=== PATIENT | female | born 1945 | race Caucasian/White ===

== ENCOUNTER 2017-01-31 23:51 | Emergency (ER) | payer MEDICARE, OTHER ==
--- NOTE | ~2017-01-31 | CT71 ---
[facility] A Service [facility] RADIOLOGY TEXT RESULTS PATIENT: HAZEL MONREAL LOCATION: [facility] : 46 UNIT #: [id number] AGE: [address]: Manuel Magana MD SEX: F ORDER DR: [id number] [facility] [address] [place], [place] [address] [id number] E MR#: [id number] Acc #: [id number] NAME: HAZEL MONREAL : 1945 SEX: F STUDY DATE/TIME: 01/31/2017 23:20 UNIT: [facility] ROOM: STUDY DESCRIPTION: CT Head Wo Contrast Attending Physician: Manuel Magana M.D. Ordering Physician: Manuel Magana M.D. Primary Care Physician: Luis Lujan M.D. MEDICAL IMAGING REPORT This report is preliminary unless electronic signature is present EXAM CT head without contrast DATE 01/31/2017 at 23:20 HISTORY 71-year-old female fell while trying to stand. Hit forehead on floor tonight. Left forehead bruising and bump. COMPARISON Noncontrast CT head 01/12/2016. FINDINGS This CT exam was performed with one or more of the following radiation dose reduction techniques: Automatic exposure control, adjustment of mA and/or kV according to patient size, and iterative reconstruction. No acute intracranial hemorrhage, mass lesion, mass effect or midline shift is seen. No evidence of acute or evolving infarct. There is mild left frontal scalp soft tissue swelling. Scattered hypodensities are present within the deep white matter of the brain which are nonspecific but are favored to represent changes of chronic microvascular disease. There is mild age-appropriate parenchymal atrophy. No displaced calvarial fracture. Mucous retention cyst or polyp is seen within the right sphenoid sinus. Mild ethmoid sinus mucosal thickening, right greater than left. Mastoid air cells appear clear. IMPRESSION 1. Mild left frontal scalp soft tissue swelling. No acute intracranial findings. 2. Mild generalized atrophy and chronic microvascular disease changes. [facility] A Service of [facility] RADIOLOGY TEXT RESULTS PATIENT: HAZEL MONREAL [id number] [birth year] UNIT #: [id number] AGE: [address]: Manuel Magana MD SEX: F ORDER DR: 3. Mild paranasal sinus disease. Dictated by... Kori Schaefer M.D. THIS IS AN ELECTRONICALLY VERIFIED REPORT Kori Schaefer M.D. at 02/01/2017 9:58 PM [facility]/jonny TD: 02/01/2017 00:32 JOB #: [id number] MEDICAL IMAGING REPORT Page 1 of 1 COPY
[~2017-01-31 23:51] MED LIST: ALBUTEROL17 GM INH; ALPRAZOLAM; ALPRAZOLAM PO; AMBIEN CR; AMBIEN PO; AMITRIPTYLINE H25 MG PO; AMITRYPTYLINE PO; AMLODIPINE-VAL1 EACH PO; BENADRYL PO; BENZONATATE PO; BRINTELLIX10 MG PO; BYSTOLIC10 MG PO; CALCIUM + D; CALCIUM1 TAB.CHEW PO; CALTRATE PLUS T1 TAB PO; CECLOR PO; CELEBREX PO; CIPRO PO; CLEOCIN PO; CLIDINIUM-CDP C1 CAP PO; COUMADIN; COUMADIN PO; COUMADIN1 MG PO; COUMADIN5 MG PO; CRESTOR10 MG PO; CYMBALTA PO; DARVOCET-N 1001 TAB; DIAZEPAM10 MG PO; DILTIAZEM ER60 MG PO; EFFEXOR XR PO; ELIQUIS2.5 MG PO; ELOCON15 GM TOP; EVOXAC30 MG PO; FERROUS SULFATE PO; FLEXERIL PO; FLONASE16 GM; FOLIC ACID1 MG PO; FUROSEMIDE40 MG PO; GABAPENTIN300 M2 PO; HYDROCHLOROTHIA25 MG PO; HYDROCODON-ACE1 EAC1 PO; HYDROCODONE-APA1 T45 PO; HYDROXYZINE HCL25 M1 PO; IBUPROFEN PO; IBUPROFEN800 MG PO; K-DUR20 ME1 PO; KCL; KCL PO; LASIX; LASIX PO; LEVAQUIN750 MG PO; LEVOTHYROXINE25 MC1 PO; LEVOTHYROXINE25 MCG PO; LIBRAX CAPSULE1 CAP PO; LIPITOR; LORACET PO; LORTAB 10-5001 EACH PO; LORTAB 10/500 T1 TAB PO; LORTAB 7.5-5001 TAB PO; LOVENOX SUBQ; MIRTAZAPINE30 M1 PO; NEURONTIN300 MG PO; NORVASC PO; NORVASC10 MG PO; OXYCODON HCL-1 UDTAB PO; PANTOPRAZOLE SO40 MG PO; PAXIL PO; PERCOCET 10/3251 TAB PO; PHENERGAN PO; PHENERGAN PR; PILOCARPINE HCL5 MG PO; PLAQUENIL200 MG; PLAQUENIL200 MG PO; POTASSIUM CHLO10 ME1 PO; PREDNISONE10 MG/DOSE PO; PRILOSEC; PRILOSEC PO; PRILOSEC20 MG PO; PROPRANOLOL HCL20 MG PO; PROTONIX PO; REMERON30 MG PO; ROBAXIN PO; SALAGEN5 MG PO; SIMVASTATIN10 MG PO; SIMVASTATIN20 MG PO; SYMBICORT INH; THERAPEUTIC-M1 EAC2 PO; TOVIAZ4 MG PO; ULTRAM ER100 MG PO; VALIUM10 MG PO; VASOTEC; VASOTEC PO; VISTARIL PO; WARFARIN SODIUM2 MG PO; ZANAFLEX4 M1 PO; ZANTAC PO; ZOCOR PO; ZOCOR20 MG PO; [UNRECOGNIZED DRUG - OTHER]; [UNRECOGNIZED DRUG - OTHER] PO
== END 2017-02-01 01:05 | disposition home or self-care (01) ==
LOC: CED 23:51
DX: S00.83XA Contusion of other part of head, initial encounter (principal); I12.9 Hypertensive chronic kidney disease with stage 1 through stage 4 chronic kidney disease, or unspecified chronic kidney disease; E11.22 Type 2 diabetes mellitus with diabetic chronic kidney disease; N18.9 Chronic kidney disease, unspecified; E78.5 Hyperlipidemia, unspecified; F41.9 Anxiety disorder, unspecified; Z86.718 Personal history of other venous thrombosis and embolism; Z86.711 Personal history of pulmonary embolism; Z79.899 Other long term (current) drug therapy; W01.0XXA Fall on same level from slipping, tripping and stumbling without subsequent striking against object, initial encounter; Y92.009 Unspecified place in unspecified non-institutional (private) residence as the place of occurrence of the external cause
CPT/HCPCS: 70450; 99284

== ENCOUNTER 2017-02-07 11:18 | Inpatient (IN) | payer MEDICARE ==
--- NOTE | ~2017-02-07 | CR71 ---
[facility] A Service of [facility] & [facility] RADIOLOGY TEXT RESULTS PATIENT: HAZEL MONREAL LOCATION: [address] : [birth year] UNIT #: [id number] AGE: [address]: Nathaly Martinez MD SEX: F ORDER DR: [id number] [facility] [address] [place], [place] [address] [id number] I MR#: [id number] Acc #: [id number] NAME: HAZEL MONREAL : 1945 SEX: F STUDY DATE/TIME: 02/14/2017 UNIT: [facility] ROOM: [facility] STUDY DESCRIPTION: CR Chest Single View Attending Physician: Nathaly Martinez M.D. Ordering Physician: Lopez Mendez M.D. Primary Care Physician: Luis Lujan M.D. MEDICAL IMAGING REPORT This report is preliminary unless electronic signature is present EXAM Portable chest 02/14 03:36 INDICATIONS Respiratory failure. Ventilator patient. Pneumonia. Hypotension. FINDINGS AP portable chest is compared 02/11/2017. ET tube and right IJ line are in good position. Dense infiltrates in the right bya-in-qbcfr lung are relatively stable. Worsened infiltrate noted left perihilar lung. There is a small right effusion. No pneumothorax. Dictated by... Edenilson Gupta Jr., M.D. THIS IS AN ELECTRONICALLY VERIFIED REPORT Edenilson Gupta Jr., M.D. at 02/14/2017 5:19 PM VIVIANE/ruy TD: 02/14/2017 10:55 JOB #: [id number] MEDICAL IMAGING REPORT Page 1 of 1 COPY
--- NOTE | ~2017-02-07 | EKG ---
PATIENT: HAZEL MONREAL UNIT #: [id number] Ventricular Rate: 77 BPM Atrial Rate: 77 BPM P-R Interval: 132 ms QRS Duration: 74 ms Q-T Interval: 404 ms QTC Calculation(Bezet): 457 ms P [place]: 51 degrees Calculated R [place]: 38 degrees Calculated T [place]: 20 degrees Diagnosis Line: Normal sinus rhythm Diagnosis Line: Normal ECG Diagnosis Line: When compared with ECG of 12-FEB-2017 09:23, Diagnosis Line: T wave amplitude has increased in Anterolateral Diagnosis Line: leads Diagnosis Line: Confirmed by SADIA HARRY MD ([id number]) on Diagnosis Line: 02/24/2017 1:12:35 PM INTERPRETING MD: ARYAN
--- NOTE | ~2017-02-07 | CR6 ---
[facility] A Service of [facility] & [facility] RADIOLOGY TEXT RESULTS PATIENT: HAZEL MONREAL LOCATION: [place] [address]13 : 46 UNIT #: [id number] AGE: [address]: Nathaly Martinez MD SEX: F ORDER DR: [id number] [facility] [address] [place], [place] [address] [id number] I MR#: [id number] Acc #: [id number] NAME: HAZEL MONREAL : 1945 SEX: F STUDY DATE/TIME: 02/17/2017 14:21 UNIT: [facility] ROOM: [facility] STUDY DESCRIPTION: CR Abdomen Portable Sng View Attending Physician: Nathaly Martinez M.D. Ordering Physician: Rm Arvizu M.D. Primary Care Physician: Luis Lujan M.D. MEDICAL IMAGING REPORT This report is preliminary unless electronic signature is present EXAM Portable abdomen for Dobbhoff tube placement 02/17/2017. HISTORY Dobbhoff tube placed. REPORT Dobbhoff tube tip is in the midportion of the stomach at 14:21 hours on 02/17/2017. Dictated by... Tremaine Valdivia M.D. THIS IS AN ELECTRONICALLY VERIFIED REPORT Tremaine Valdivia M.D. at 02/17/2017 4:29 PM JASON/ TD: 02/17/2017 15:51 JOB #: [id number] MEDICAL IMAGING REPORT Page 1 of 1 COPY
--- NOTE | ~2017-02-07 | CO ---
Unit #: [id number] #: [id number] Patient: HAZEL STRONG [id number] [facility] [address] [place], [place] [address] [id number] I MR#: [id number] NAME: HAZEL STRONG ROOM: [facility] Age: 71 Sex: F Admission Date: 02/07/2017 : 1945 Attending Physician: Nathaly Martinez M.D. Primary Care Physician: Luis Lujan M.D. Consultation Date: 02/28/2017 CONSULTATION REPORT REASON FOR CONSULTATION Followup and increased agitation. HISTORY OF PRESENT ILLNESS Ms. Hazel Strong is a 71-year-old white female, seen in room 13 at CCU[facility]3 at [facility] on 02/28/2017. The patient is currently on Precedex drip as well as Zyprexa and Ativan. The patient is also on propofol. In spite of that, the patient is still having agitation, needing bilateral hand restraints. Case was discussed with Dr. Martinez as well as with the nursing staff and agreed with the plan to consider changing medication. The patient is unable to give any coherent information at this time, sleepy with medication. The patient's vital signs; temperature 98.7, pulse 78, respirations 18, blood pressure 143/72, oxygen saturation 96%. REVIEW OF SYSTEMS A complete review of systems is unable to test at this time except for agitation. MENTAL STATUS EXAMINATION Vital signs; please see above. General appearance; the patient dressed in hospital attire, breathing through the trach. Speech, unable to assess. Orientation, mood and affect, thought process, thought content; unable to assess. Recent and remote memory, language, fund of knowledge; unable to assess. Insight and judgment, impaired. DIAGNOSIS Psychiatric: Delirium, F05. ASSESSMENT AND PLAN Recommending at this time to discontinue Zyprexa and start the patient on Haldol 5 mg p.o. t.i.d., Cogentin 1 mg p.o. t.i.d. to control agitation and for the above-mentioned symptom. We are replacing Zyprexa with Haldol and increasing Ativan to 1 mg t.i.d. p.o. The patient has an NG-tube with a plan to taper off Precedex as well as propofol, so that the patient is more awake and alert and decrease her agitation. The patient may be going to [place] at this time. We will continue to follow. Please feel free to call if any questions, telephone #[phone]. Dictated by... Figueroa Shannon M.D. [facility] Unit #: [id number] #: [id number] Patient: HAZEL STRONG TD: 03/01/2017 13:50 JOB #: [id number] CONSULTATION REPORT Page 1 of 1 X Figueroa Shannon MD X CONSULTATION REPORT
--- NOTE | ~2017-02-07 | CR72 ---
[facility] A Service of [facility] & [facility] RADIOLOGY TEXT RESULTS PATIENT: HAZEL MONREAL LOCATION: [address] : [birth year] UNIT #: [id number] AGE: [address]: Nathaly Martinez MD SEX: F ORDER DR: [id number] [facility] [address] [place], [place] [address] [id number] I MR#: [id number] Acc #: [id number] NAME: HAZEL MONREAL : 1945 SEX: F STUDY DATE/TIME: 02/15/2017 UNIT: [facility] ROOM: [facility] STUDY DESCRIPTION: CR Chest Single View Portable Attending Physician: Nathaly Martinez M.D. Ordering Physician: Venkat Dash M.D. Primary Care Physician: Luis Lujan M.D. MEDICAL IMAGING REPORT This report is preliminary unless electronic signature is present EXAM Portable chest 02/15 at 05:26 INDICATIONS Respiratory failure. Ventilator patient. Pneumonia. FINDINGS AP portable chest is compared with 02/14/2017. The ET tube and right IJ line are in good position. Feeding tube is in the proximal stomach. Consolidations throughout the right lung with a basilar predominance are again seen. They are probably not significantly changed. There is a small persistent right pleural effusion. Left lung is essentially clear. No pneumothorax. Dictated by... Edenilson Gupta Jr., M.D. THIS IS AN ELECTRONICALLY VERIFIED REPORT Edenilson Gupta Jr., M.D. at 02/16/2017 5:53 AM VIVIANE/ruy TD: 02/15/2017 08:04 JOB #: [id number] MEDICAL IMAGING REPORT Page 1 of 1 COPY
--- NOTE | ~2017-02-07 | CR72 ---
[facility] A Service of [facility] RADIOLOGY TEXT RESULTS PATIENT: HAZEL MONREAL LOCATION: [place] [address]13 : 46 UNIT #: [id number] AGE: [address]: Nathaly Martinez MD SEX: F ORDER DR: [id number] [facility] [address] [place], [place] [address] [id number] I MR#: [id number] Acc #: [id number] NAME: HAZEL MONREAL : 1945 SEX: F STUDY DATE/TIME: 03/01/2017 3:28 UNIT: [facility] ROOM: [facility] STUDY DESCRIPTION: CR Chest Single View Portable Attending Physician: Nathaly Martinez M.D. Ordering Physician: Stoney Kurtz M.D. Primary Care Physician: Luis Lujan M.D. MEDICAL IMAGING REPORT This report is preliminary unless electronic signature is present EXAM Portable chest INDICATIONS Respiratory failure. PROCEDURE Frontal view chest. COMPARISON: 02/26/2017 FINDINGS Heart size unchanged. No new dense consolidation or visible pneumothorax. IMPRESSION Stable Dictated by... Luciano Morales M.D. THIS IS AN ELECTRONICALLY VERIFIED REPORT Luciano Morales M.D. at 03/01/2017 9:53 PM EED/ruy TD: 03/01/2017 08:59 JOB #: [id number] MEDICAL IMAGING REPORT Page 1 of 1 COPY
--- NOTE | ~2017-02-07 | EKG ---
PATIENT: HAZEL MONREAL UNIT #: [id number] Ventricular Rate: 109 BPM Atrial Rate: 109 BPM P-R Interval: 134 ms QRS Duration: 72 ms Q-T Interval: 330 ms QTC Calculation(Bezet): 444 ms P [place]: 55 degrees Calculated R [place]: 20 degrees Calculated T [place]: 120 degrees Diagnosis Line: Sinus tachycardia Diagnosis Line: Poor R wave progression questionable lead position Diagnosis Line: or body habitus Diagnosis Line: ST and T wave abnormality, consider lateral ischemia Diagnosis Line: Abnormal ECG Diagnosis Line: When compared with ECG of 08-FEB-2017 09:16, Diagnosis Line: (unconfirmed) Diagnosis Line: T wave inversion now evident in Lateral leads Diagnosis Line: Confirmed by KAMINI PARKS MD ([id number]) on 02/09/2017 Diagnosis Line: 10:01:16 AM INTERPRETING MD: KASEY MENG
--- NOTE | ~2017-02-07 | HP ---
Unit #: [id number] #: [id number] Patient: HAZEL MONREAL [id number] [place] [address] [place], [place] [address] [id number] I MR#: [id number] NAME: HAZEL MONREAL ROOM: [facility] Age: Sex: F Admission Date: 02/07/2017 : 1945 Attending Physician: Nathaly Martinez M.D. Primary Care Physician: Luis Lujan M.D. HISTORY AND PHYSICAL CHIEF COMPLAINT Unresponsiveness. HISTORY OF PRESENTING ILLNESS A 71-year-old female with multiple medical problems was last admitted in [facility] in January 2016, a year ago or so. She was unresponsive and was brought to the ER by her son. I have tried to call patient's son, but could not communicate with him. I have called patient's sister, and she is going to let the son call me. According to her sister, she was sleeping a lot over the weekend, and her son could not wake her up. Maybe she took a lot of pain medication as per her sister, although she does not know that at all. Her son brought her to the ER today, and patient was found to be in acute respiratory distress and hypotensive. Patient has been intubated in the ER and is being admitted to the ICU. Patient is on pressors. This is the only history I have at this time. PAST MEDICAL HISTORY From previous records: 1. Chronic respiratory failure. 2. Obstructive sleep apnea. 3. Deep venous thrombosis and PE. 4. Chronic kidney disease. 5. Hypertension. 6. Hypothyroidism. 7. Chronic pain. 8. Hyperlipidemia. 9. Anxiety and depression. PAST SURGICAL HISTORY 1. Total knee replacement. 2. Appendectomy. 3. Cholecystectomy. SOCIAL HISTORY Patient lives at home with her son. No history of smoking, alcohol, or drug abuse. ALLERGIES Clindamycin, penicillin, sulfa, and erythromycin. MEDICATIONS Home medication reconciliation is being done at this time. Unit #: [id number] #: [id number] Patient: HAZEL MONREAL PHYSICAL EXAMINATION GENERAL: Patient is evaluated in the ER, room 3. Patient is intubated. She is unresponsive. VITAL SIGNS: Blood pressure is 89/57, respiratory rate (1) , temperature is 96.5, and oxygen saturation is 98% at this time. HEENT: Head is normocephalic. NECK: Patient is intubated. CHEST: Decreased air entry bilaterally. Crackles are positive bilaterally. CARDIOVASCULAR: S1 and S2 positive. Patient has regular rhythm. ABDOMEN: Soft. EXTREMITIES: Negative edema. Pulses are palpable. Patient has a Isabell Hugger on because of hypothermia. CENTRAL NERVOUS SYSTEM: Patient is unresponsive. DIAGNOSTIC STUDIES LABORATORY: ABG shows pH of 7.11, PCO2 of 47.9, and PO2 of 269. This is on 100% FIO2 vent. Urinalysis shows 4+ bacteria. Troponin is less than 0.05. WBC 6.5, hemoglobin 11.5, hematocrit 36.2, and platelet count is 191,000. Sodium 136, potassium 5.7, chloride 104, bicarb 14, BUN 61, and creatinine 4.4. Amylase is 128 and magnesium 2. IMAGING: CT scan of the chest was done in the ER that showed extensive diffuse dense airspace change in the right lower lobe. CT scan of the head without contrast was done which showed no acute abnormality. ASSESSMENT Patient is being admitted to the ICU with: 1. Acute hypoxic respiratory failure. 2. Aspiration pneumonia. 3. Sepsis. 4. Urinary tract infection. 5. Hypotension. 6. Acute renal failure, possible acute tubular necrosis. 7. Altered mental status, possible toxic metabolic encephalopathy. 8. History of obstructive sleep apnea. 9. History of diabetes mellitus, diet controlled. 10. History of deep venous thrombosis and pulmonary embolism. PLAN Admit to ICU. Dr. Derrick Kurtz is being consulted. Ventilator management will be done as per his recommendation. IV antibiotics are being started which are Levaquin, tobramycin, and aztreonam. Lovenox 40 mg subcutaneous daily. Urine toxicology screen will be done. Home medications have been reviewed. Panculture has been done. Patient is being placed on sepsis protocol. Pressors are being started. Please refer to progress note for further orders. Patient's son has called back, and extensive history was taken. He was also informed about critical condition. He does verbalize understanding. ADDITIONAL JOB #: [id number] Dictated by Bony Mckeon Unit #: [id number] #: [id number] Patient: HAZEL MONREAL TD: 02/07/2017 17:43 JOB #: [id number] HISTORY AND PHYSICAL Page 1 of 1 X Nathaly Martinez MD HISTORY AND PHYSICAL
--- NOTE | ~2017-02-07 | CO ---
Unit #: [id number] #: [id number] Patient: HAZEL STRONG [id number] [address] [address] [id number] I MR#: [id number] NAME: HAZEL STRONG ROOM: [facility] Age: 71 Sex: F Admission Date: 02/07/2017 : 1945 Attending Physician: Nathaly Martinez M.D. Primary Care Physician: Luis Lujan M.D. Consultation Date: 03/01/2017 CONSULTATION REPORT REASON FOR CONSULTATION Followup. DISCUSSION Ms. Hazel Strong is a 71-year-old white female seen in CCU 3, bed 13 on 03/01/17. Patient diagnosed with acute respiratory failure and intubated. Still needing restraint bilateral arms. Patient started on Haldol. No side effects from medication. Unable to obtain information from patient. Patient, according to the staff, will be going to [facility] in ICU. Staff trying to control patient's agitation, aggression. In spite of all the medications, still requiring restraints. Vital signs: Pulse 72, respirations 23, blood pressure 97/44. REVIEW OF SYSTEMS Complete review of systems unobtainable. MENTAL STATUS EXAMINATION VITAL SIGNS: Please see above. GENERAL APPEARANCE: Patient dressed in hospital attire and currently intubated. ATTENTION SPAN AND CONCENTRATION: Unable to assess. SPEECH, ORIENTATION, MOOD AND AFFECT, THOUGHT PROCESS, THOUGHT CONTENT and RECENT AND REMOTE MEMORY: Unable to assess. LANGUAGE AND FUND OF KNOWLEDGE: Unable to assess. INSIGHT AND JUDGEMENT: Impaired. DIAGNOSES PSYCHIATRIC 1. Delirium, F05. 2. History of major depressive disorder, recurrent, severe, F33.2. ASSESSMENT/PLAN Advised at this time to continue with current regimen of Haldol, Cogentin, and Ativan and continue with the medication advised. Suggest Precedex drip. Continue with restraints for safety at this time. Please feel free to call if any questions. Telephone number . Dictated by... Figueroa Shannon M.D. [facility] Unit #: [id number] #: [id number] Patient: HAZEL STRONG TD: 03/02/2017 09:24 JOB #: [id number] CONSULTATION REPORT Page 1 of 1 X Figueroa Shannon MD CONSULTATION REPORT
--- NOTE | ~2017-02-07 | CR72 ---
[facility] A Service of [facility] & [facility] RADIOLOGY TEXT RESULTS PATIENT: HAZEL MONREAL LOCATION: [address] : [birth year] UNIT #: [id number] AGE: [address]: Nathaly Martinez MD SEX: F ORDER DR: [id number] [facility] [address] [place], [place] [address] [id number] I MR#: [id number] Acc #: [id number] NAME: HAZEL MONREAL : 1945 SEX: F STUDY DATE/TIME: 02/18/2017 04:36 [facility]: [facility] STUDY DESCRIPTION: CR Chest Single View Portable Attending Physician: Nathaly Martinez M.D. Ordering Physician: Laureano Edwards Jr., M.D. Primary Care Physician: Luis Lujan M.D. MEDICAL IMAGING REPORT This report is preliminary unless electronic signature is present EXAM Portable chest 02/18/2017 04:36 INDICATION Respiratory failure. Ventilator patient. FINDINGS AP portable chest is compared with 02/16/2017. The patient has been extubated. Cardiomegaly is stable. There is increased patchy infiltrate in the left ixn-zy-aezlw lung. There is relatively stable fairly diffuse infiltrate in the right lung. There is a small right pleural effusion which is unchanged. No pneumothorax. Right IJ line in the SVC. Dictated by... Edenilson Gupta Jr., M.D. THIS IS AN ELECTRONICALLY VERIFIED REPORT Edenilson Gupta Jr., M.D. at 02/21/2017 8:36 AM VIVIANE/ashely TD: 02/18/2017 06:59 JOB #: [id number] MEDICAL IMAGING REPORT Page 1 of 1 COPY
--- NOTE | ~2017-02-07 | FU ---
[facility] Nutrition Therapy DATE: 02/15/17 Patient: HAZEL MONREAL Physician: FRANCK Address: [facility] [address] Room/Bed: [address], Zip: [place] [address] Admit Date: 02/07/17 Date of : [birth year] Height: 4 11 Weight: 171 78 NUTRITION MONITORING/FOLLOW-UP: Reason: Follow up Anthropometrics: Wt 02/15: 78 kg Labs: K+ 2.8 gluc 117 BUN 47 Ca++ 7.1 Alb 1.9 Accuchecks 128 GFR 8 Meds: Folic acid, NaCl, pepcid, levaquin (IV), sodium bicarbonate I&O's: 4090/3772, last BM 02/15 Skin: Deep tissue injury to left heel Edema: Generalized- pedal/ hands Estimated Nutrition Needs: 7823-8893 kcals (15-18 kcals/kg) 84-109 grams protein (1.0-1.3 grams/kg) Assessment: Chart reviewed, events noted. Pt remains intubated in the ICU. Pt failed wean yesterday per RN report. Pt continues to receive enteral nutrition with Nepro @ 30 mL/hr + Prostat BID. Per pump history, the pt has received 98% goal volume of enteral nutrition x 24 hrs, and 92% of goal volume over 48 hrs. Edema noted. Please see recommendations below. Dx: 1) Inadequate oral intake RT intubation AEB need for enteral nutrition support- ACTIVE 2) Stage II obesity RT possibly poor lifestyle habits AEB BMI 37.2. Intervention: 1. Continue enteral nutrition Monitoring, Evaluation and Goals: 1. Enteral nutrition; provide >80% goal volume x 24 hrs- MET 2. Labs; WNL- NOT MET 3. Weight; preserve lean body mass- IN PROGRESS New goals: 1. Improve labs; glucose, BUN, K+, accuchecks Recommendations: 1. Continue the current enteral nutrition regimen with Nepro @ 30 mL/hr + Prostat BID. [facility] Nutrition Therapy DATE: 02/15/17 Patient: HAZEL MONREAL Physician: FRANCK [facility] [address] Room/Bed: [address], Zip: [place] [address] Admit Date: 02/07/17 Date of : [birth year] Height: 4 11 Weight: 171 78 2. Please obtain a current phos level, as the pt may no longer need to be on a renal enteral formula (low K+ noted, BUN, GFR, creat trending down). If the pt's Phos is WNL, please change enteral formula from Nepro to Jevity 1.5. If ordered: -Start Jevity 1.5 @ goal rate of 35 mL/hr + 30 mL/hr Prostat BID to provide: 1640 kcals/ 91 grams protein/ 730 mL free H20 3. Replete electrolytes to WNL PRN. 4. If the pt is extubated, recommend UTILITY SYSTEM OPERATOR evauation. Status: Pt is at mild-moderate nutritional risk. Respectfully, KUSUM REBOLLAR RD, LD [employer] [facility] cc: client file
--- NOTE | ~2017-02-07 | CR72 ---
[facility] A Service of [facility] & [facility] RADIOLOGY TEXT RESULTS PATIENT: HAZEL MONREAL LOCATION: [place] [address] : [birth year] UNIT #: [id number] AGE: [address]: Nathaly Martinez MD SEX: F ORDER DR: [id number] [facility] [address] [place], [place] [address] [id number] I MR#: [id number] Acc #: [id number] NAME: HAZEL MONREAL : 1945 SEX: F STUDY DATE/TIME: 02/09/2017 4:06 UNIT: [facility] ROOM: [facility] STUDY DESCRIPTION: CR Chest Single View Portable Attending Physician: Nathaly Martinez M.D. Ordering Physician: Stoney Kurtz M.D. Primary Care Physician: Luis Lujan M.D. MEDICAL IMAGING REPORT This report is preliminary unless electronic signature is present EXAM Portable chest HISTORY Respiratory distress COMPARISON 02/08/2017 FINDINGS Examination demonstrates endotracheal tube in place, unchanged as well as the right neck approach central line. No significant change in cardiopulmonary status with continued dense consolidation right upper and right lower lobes, most compatible with acute infectious pneumonia. Left lung remains clear. Heart and mediastinum unremarkable except for atherosclerotic changes. No pneumothorax. Dictated by... Chele Parker M.D. THIS IS AN ELECTRONICALLY VERIFIED REPORT Chele Parker M.D. at 02/09/2017 10:33 PM THERON/caro TD: 02/09/2017 04:49 JOB #: [id number] MEDICAL IMAGING REPORT Page 1 of 1 COPY
--- NOTE | ~2017-02-07 | DS ---
Unit #: [id number] #: [id number] Patient: HAZEL STRONG [id number] [address] [place], [place] [address] [id number] MR#: [id number] NAME: HAZEL STRONG ROOM: [facility] Age: 71 Sex: F Admission Date: 02/07/2017 : 1945 Discharge Date: 03/01/2017 Attending Physician: Nathaly Martinez M.D. Primary Care Physician: Luis Lujan M.D. DISCHARGE SUMMARY CONSULTATION DURING HOSPITALIZATION 1. Dr. Luis Maria from [facility]. 2. Dr. Anu Traore from hematology services 3. Dr. Santos from cardiology services. 4. Dr. Derrick Kurtz from pulmonary services. 5. Dr. Laureano Edwards and Dr. Coreas from renal services. 6. Dr. Figueroa Shannon from psych services. FINAL DIAGNOSES 1. Acute hypoxic respiratory failure. 2. Status post tracheostomy. 3. Status post percutaneous endoscopic gastrostomy tube placement. 4. Congestive heart failure with ejection fraction of 35%. 5. Ruldg-tk-rdzartz kidney disease. 6. Acute non-ST elevation myocardial infarction. 7. History of deep venous thrombosis/pulmonary embolism. 8. History of methicillin-sensitive Staphylococcus aureus pneumonia. Has completed the course of antibiotics. 9. Escherichia coli urinary tract infection. Patient has completed the course of antibiotics. 10. Diabetes mellitus type 2. 11. Hypertension. DISCHARGE MEDICATIONS 1. Ventolin inhaler q.4 h. p.r.n. 2. Mini-neb treatment with albuterol and ipratropium q.i.d. 3. Symbicort 160/4.5 two puff inhaler b.i.d. 4. Prednisone tapering dose. 5. Tylenol 650 q.6 h. p.r.n. 6. Lovenox 80 mg subcu daily. 7. Cogentin 1 mg p.o. t.i.d. 8. Haldol 5 mg p.o. t.i.d. 9. Ativan 1 mg p.o. t.i.d. 10. Coreg 3.125 mg b.i.d. 11. Furosemide 20 mg daily. 12. Lipitor 20 mg q.h.s. 13. Lisinopril 2.5 mg daily. 14. Pepcid 20 mg daily. 15. Aspirin 81 mg daily. 16. Plavix 75 mg daily. 17. Spironolactone 25 mg daily. 18. Folic acid 1 mg p.o. daily. Unit #: [id number] #: [id number] Patient: HAZEL STRONG DIAGNOSTIC STUDIES LABORATORY WORKUP: On discharge BMP shows sodium 139, potassium 3.6, chloride 108, BUN 38, creatinine 1.1, calcium 8.4.; CBC shows WBC 8.5, hemoglobin 9.1, hematocrit 28.3, platelet count of 298. IMAGING: The patient has multiple radiological studies which will be sent in the chart. Most recent chest x-ray was done on 03/01/2017, today, which shows it is stable. Patient has no new dense consolidation or visible pneumothorax. Heart size is unchanged. HOSPITAL COURSE Miss Karen Strong is a 71-year-old female who was admitted to [facility] on February 07, 2017 when she was brought to ER by her son with altered mental status. Patient was found to be in hypoxic respiratory failure. Patient was admitted to intensive care unit with a diagnosis of acute hypoxemic respiratory failure, right-sided pneumonia, acute kidney injury, possible rhabdomyolysis in the setting of chronic kidney disease, urinary tract infection, sepsis, hypertension and altered mental status, possible toxic-metabolic encephalopathy. Patient has had a very lengthy stay during hospitalization. Patient was not able to come off ventilator; discussed with family. Patient had tracheostomy done and is on ventilator support at this time. Patient was seen by Dr. Mendez's group. Patient does have congestive heart failure, has ejection fraction of 35%. Patient had acute non Q-wave NH. Patient is on Lovenox at this time. Patient has history of DVT and pulmonary embolism. Continue anticoagulation therapy. Patient was on Eliquis at home for PE. Patient will have conservative medical treatment for coronary artery disease as per Dr. Santos. The patient's congestive heart failure seems to be compensated at this time. She is on furosemide per tube dose. Patient does follow with Dr. Traore, train conductor, as outpatient and patient was seen by him during hospitalization. Patient was seen by Dr. Derrick Kurtz. She had MSSA pneumonia which was treated. She has completed the course of antibiotic. No more antibiotic at this time. The patient's steroid is being tapered off. Patient is being started on prednisone 5 mg t.i.d. for three days then 2.5 mg p.o. daily for three days and then stop. Patient was on Solu-Cortef during hospitalization and that is being discontinued. PHYSICAL EXAMINATION ON DISCHARGE Patient is being seen in ICU bed 3. VITAL SIGNS: Blood pressure is 107/59. Respiratory rate 26. Pulse is 69. Temperature 99.4. Oxygen saturation is 100%. HEENT: Head is normocephalic. CHEST: Has decreased air entry bilaterally. CVS: S1, S2 positive, regular rhythm. ABDOMEN: Soft. No tenderness. EXTREMITIES: No edema. DISCHARGE INSTRUCTIONS 1. Patient is being discharged to [facility] in stable condition. 2. Continue medication as above. 3. Patient will need to be continued to be seen by access specialist. Airflight Attendants Supervisor and psychiatry. 4. Patient is on tube feed, is able to tolerate well, continue same. Unit #: [id number] #: [id number] Patient: HAZEL STRONG Dictated by... Bony Mckeon/sanya TD: 03/01/2017 16:37 JOB #: [id number] DISCHARGE SUMMARY Page 1 of 1 X Nathaly Martinez MD X DISCHARGE SUMMARY
--- NOTE | ~2017-02-07 | CR72 ---
[facility] A Service of [facility] & [facility] RADIOLOGY TEXT RESULTS PATIENT: HAZEL MONREAL LOCATION: [place] [id number] : [birth year] UNIT #: [id number] AGE: [address]: Nathaly Martinez MD SEX: F ORDER DR: [id number] [facility] [address] [place], [place] [address] [id number] I MR#: [id number] Acc #: [id number] NAME: HAZEL MONREAL : 1945 SEX: F STUDY DATE/TIME: 02/23/2017 13:23 UNIT: [facility] ROOM: [facility] STUDY DESCRIPTION: CR Chest Single View Portable Attending Physician: Nathaly Martinez M.D. Ordering Physician: Luis Maria M.D. Primary Care Physician: Luis Lujan M.D. MEDICAL IMAGING REPORT This report is preliminary unless electronic signature is present EXAM Portable chest 02/23 INDICATIONS Shortness of air. Tracheostomy tube placement today. FINDINGS AP portable chest compared with 02/22/2017. New tracheostomy tube is in good position. Right IJ line in the SVC. Cardiomegaly is stable. Bilateral infiltrates right greater than left also not significantly changed. There is no pneumothorax. Gastrostomy tube has been placed, and the feeding tube has been removed. Dictated by... Edenilson Gupta Jr., M.D. THIS IS AN ELECTRONICALLY VERIFIED REPORT Edenilson Gupta Jr., M.D. at 02/23/2017 6:34 PM VIVIANE/ TD: 02/23/2017 16:33 JOB #: [id number] MEDICAL IMAGING REPORT Page 1 of 1 COPY
--- NOTE | ~2017-02-07 | CR72 ---
[facility] A Service of [facility] & [facility] RADIOLOGY TEXT RESULTS PATIENT: HAZEL MONREAL [facility] [birth year] UNIT #: [id number] AGE: [address]: Nathaly Martinez MD SEX: F ORDER DR: [id number] [facility] [address] [place], [place] [address] [id number] MR#: [id number] Acc #: [id number] NAME: HAZEL MONREAL : 1945 SEX: F STUDY DATE/TIME: 02/07/2017 12:29 UNIT: [facility] ROOM: STUDY DESCRIPTION: CR Chest Single View Portable Attending Physician: Jordi Quintero M.D. Ordering Physician: Jordi Quintero M.D. Primary Care Physician: Luis Lujan M.D. MEDICAL IMAGING REPORT This report is preliminary unless electronic signature is present EXAM Portable chest x-ray, 02/07/2017 HISTORY Intubation. Central line placement. Short of air. Milky colored urine. Symptoms began this a.m. COMPARISON 01/13/2016 FINDINGS Findings discussed with Dr. Quintero immediately prior to this dictation. Dr. Quintero indicates endotracheal tube has been repositioned subsequent to this radiograph. On current study endotracheal tube tip just within the orifice of left mainstem bronchus. For placement in mid thoracic trachea, it could be withdrawn 2.0-3.0 cm. Right internal jugular central venous catheter terminates in superior vena cava. Stable mild cardiac enlargement and descending thoracic aortic tortuosity. The lungs are moderately well inflated. The left lung is clear. Dense somewhat rounded air space disease in the right mid and lower lung zones. The appearance is nonspecific. Dense aspiration pneumonia could be considered. Other forms of severe pneumonia are possible. Given the rounded configuration, the possibility of neoplastic disease is not excluded. Patient is scheduled for CT chest. Please see that study for further characterization. No pleural effusion or pneumothorax. There is mild gaseous distension of proximal stomach. Dictated by... Luis Carey M.D. THIS IS AN ELECTRONICALLY VERIFIED REPORT Luis Carey M.D. at 02/08/2017 3:50 PM [facility] A Service of [facility] RADIOLOGY TEXT RESULTS PATIENT: HAZEL MONREAL LOCATION: [facility] CICCU3-13 : [birth year] UNIT #: [id number] AGE: [address]: Nathaly Martinez MD SEX: F ORDER DR: STEPHY/fiordaliza TD: 02/07/2017 14:26 JOB #: [id number] MEDICAL IMAGING REPORT Page 1 of 1 COPY
--- NOTE | ~2017-02-07 | OR ---
Unit #: [id number] #: [id number] Patient: HAZEL MONREAL [id number] [address] [place], [place] [address] [id number] MR#: [id number] NAME: HAZEL MONREAL ROOM: [facility] Date of Procedure: 02/23/2017 Admission Date: 02/07/2017 Surgeon: Luis Maria M.D. : 1945 Attending Physician: Nathaly Martinez M.D. Primary Care Physician: Luis Lujan M.D. OPERATIVE REPORT PREOPERATIVE DIAGNOSES 1. Inability to tolerate oral intake. 2. Ventilator dependence. POSTOPERATIVE DIAGNOSES 1. Inability to tolerate oral intake. 2. Ventilator dependence. PROCEDURES PERFORMED 1. Esophagogastroduodenoscopy. 2. Percutaneous endoscopic gastrostomy tube placement. 3. Tracheostomy. EMERGING TECHNOLOGIES DIRECTOR Grayson Stevenson M.D. ANESTHESIA General endotracheal anesthesia. ESTIMATED BLOOD LOSS Minimal. IV FLUIDS 500 crystalloid. COMPLICATIONS None. INDICATIONS FOR PROCEDURE The patient is a 71-year-old, who presents for trach and PEG placement. DESCRIPTION OF PROCEDURE The patient was taken to the operating theater and placed in supine position. General anesthesia was induced. EGD scope was passed under direct vision into the esophagus. Esophagus, stomach, and duodenum appeared relatively normal. I palpated externally. I was able to transilluminate the light through the abdominal wall. This was then prepped. A small incision was made. A needle introducer placed transcutaneous into the stomach under direct vision. I then threaded a guidewire and brought this out orally. I threaded the tube over the guidewire and brought this out through the stomach. This was then fashioned with buttressed skin level. Hemostasis was adequate. Unit #: [id number] #: [id number] Patient: HAZEL MONREAL The patient was then repositioned. Anterior cervical region was prepped and draped. A vertical incision was then made in the skin, taken down through platysma with Bovie electrocautery. I went down through the strap muscles and then divided the thyroid isthmus. I identified the trachea. I then placed two lateral retraction sutures around the second ring. This was then incised and an #8 Shiley tracheostomy tube placed in position. Its location confirmed with return of end-tidal CO2. I then secured with Ethibond sutures and trach tape. The patient tolerated the procedure well and sent to the recovery room in good condition. Dictated by... Bony Boo/bonilla TD: 02/23/2017 23:29 JOB #: [id number] OPERATIVE REPORT Page 1 of 1 X Luis Maria MD X PROCEDURE OPERATIVE NOTE
--- NOTE | ~2017-02-07 | US84 ---
[id number] [facility]. [facility] [address] [place], [place] [address] [id number] I MR#: [id number] Acc #: [id number] NAME: HAZEL MONREAL : 1945 SEX: F STUDY DATE/TIME: 02/16/2017 17:37 UNIT: [facility] ROOM: [facility] STUDY DESCRIPTION: US LE Veins Complete Napoleon Stdy Attending Physician: Nathaly Martinez M.D. Ordering Physician: Venkat Dash M.D. Primary Care Physician: Luis Lujan M.D. MEDICAL IMAGING REPORT This report is preliminary unless electronic signature is present EXAM Color Doppler ultrasound examination of both lower extremities. HISTORY Shortness of breath for the past 1-1/2 weeks. Previous history of pulmonary embolism. TECHNIQUE Venous ultrasound examination of both lower extremities was performed using grayscale, spectral Doppler and color flow Doppler imaging. FINDINGS The examination is negative. There is no evidence of deep venous thrombus from the groin to the lower calf bilaterally. Visualized greater saphenous veins are also patent. IMPRESSION Negative examination. No evidence of lower extremity deep venous thrombosis. Dictated by... Edenilson Villavicencio M.D. THIS IS AN ELECTRONICALLY VERIFIED REPORT Edenilson Villavicencio M.D. at 02/18/2017 12:41 PM SILVINO/jose TD: 02/16/2017 18:53 JOB #: [id number] MEDICAL IMAGING REPORT Page 1 of 1 COPY
--- NOTE | ~2017-02-07 | CR72 ---
[facility] A Service of [facility] & [facility] RADIOLOGY TEXT RESULTS PATIENT: HAZEL MONREAL LOCATION: [place] [address]13 : [birth year] UNIT #: [id number] AGE: [address]: Nathaly Martinez MD SEX: F ORDER DR: [id number] [facility] [address] [place], [place] [address] [id number] I MR#: [id number] Acc #: [id number] NAME: HAZEL MONREAL : 1945 SEX: F STUDY DATE/TIME: 02/18/2017 8:22 UNIT: [facility] ROOM: [facility] STUDY DESCRIPTION: CR Chest Single View Portable Attending Physician: Nathaly Martinez M.D. Ordering Physician: Venkat Dash M.D. Primary Care Physician: Luis Lujan M.D. MEDICAL IMAGING REPORT This report is preliminary unless electronic signature is present EXAM Portable chest INDICATION Endotracheal intubation. Comparison with earlier today. FINDINGS The endotracheal tube is in satisfactory position above the ana. Worsening consolidations within the right upper lobe. Improved aeration of the left base. Stable right lower lobe consolidation. Heart size stable. Stable right IJ central venous catheter. IMPRESSION 1. The endotracheal tube tip is in satisfactory position above the ana. 2. Worsening right upper lobe consolidations. Dictated by... Quinn Parker M.D. THIS IS AN ELECTRONICALLY VERIFIED REPORT Quinn Parker M.D. at 02/21/2017 7:36 AM Adeline TD: 02/18/2017 09:20 JOB #: [id number] MEDICAL IMAGING REPORT Page 1 of 1 COPY
--- NOTE | ~2017-02-07 | CO ---
Unit #: [id number] #: [id number] Patient: HAZEL MONREAL [id number] [address] [address] [id number] I MR#: [id number] NAME: HAZEL MONREAL ROOM: [facility] Age: 71 Sex: F Admission Date: 02/07/2017 : 1945 Attending Physician: Nathaly Martinez M.D. Primary Care Physician: Luis Lujan M.D. CONSULTATION REPORT CHIEF COMPLAINT MGS, but workup normal, PE, history of anterior abdominal bleed, low-dose Lovenox, lost to followup, now sepsis, respiratory failure. HISTORY OF PRESENT ILLNESS This is a 71-year-old female who in the past presented to the hospital with shortness of breath. VC scan in 04/2015 showed PE and she was started on Coumadin, Lovenox and sent home. She came back with bleeding of the anterior abdominal wall. Her INR was elevated. It was reversed and she was started on low-dose Lovenox. She has been taking Eliquis 2.5 mg p.o. daily as an outpatient and tolerating it. The patient in the past had MGS. 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 The patient had (1) fixation that is normal. The patient was lost to followup. Now she is admitted with urosepsis and pneumonia, mostly on the right side. She is receiving multiple antibiotics. She is intubated. Her pressure is low. PAST MEDICAL HISTORY 1. Diabetes. 2. Hypertension. 3. Chronic kidney disease. 4. PE, bleeding, not compliant with anticoagulation. PAST SURGICAL HISTORY 1. Appendectomy. 2. Knee replacement. SOCIAL HISTORY No smoking. No alcohol. No drugs. Used to work for [employer]. FAMILY HISTORY Father had cancer, type unknown. ALLERGIES Sulfa, penicillin, clindamycin and azithromycin. CURRENT MEDICATIONS 1. Levaquin. 2. Folic acid. 3. Aspirin. 4. Lovenox. 5. Azactam. 6. Vancomycin. Unit #: [id number] #: [id number] Patient: HAZEL MONREAL REVIEW OF SYSTEMS Unable to obtain because the patient is sedated and intubated. PHYSICAL EXAMINATION VITALS: Temperature 99.0, pulse 107, respiratory rate 20, blood pressure 130/67, O2 saturations while intubated 99%. HEENT: Dry mucosa. LUNGS: Bilateral wheezes. HEART: S1 and S2. ABDOMEN: Soft. EXTREMITIES: No edema. NEUROLOGIC: Unable to perform. DIAGNOSTIC STUDIES IMAGING: The patient had a CT of the chest without contrast on 02/07/2017. Diffuse dense airspace changes, air bronchogram in the right lower lobe. Resembled focal pneumonia. LABORATORY: Blood culture positive for e-coli. Creatinine 2.0, (2) 4%, B12 475, White blood cell count 18.0, hemoglobin 8.1, MCV 19, platelets 125. ASSESSMENT This is a 71-year-old female who has multiple active issues at present. 1. Sepsis. She has a pneumonia. She has bacteremia. She has a urosepsis. She is intubated. She is receiving multiple antibiotics. 2. Cardiovascular. Troponin is elevated. She is taking aspirin, Lovenox and tolerating. 3. PE. Patient in the past has a history of PE. She had anterior abdominal bleed. She was taking a low-dose Eliquis, but lost to followup. 4. MGS in the past. The patient has a history of some free light chain. Repeat work was normal. 5. Anemia. I will give her intravenous iron, folic acid and Procrit. Her creatinine is elevated. 6. Thrombocytopenia. Will observe. Dictated by... Bony Rodriguez TD: 02/10/2017 09:22 JOB #: [id number] CONSULTATION REPORT Page 1 of 1 X Anu Traore MD CONSULTATION REPORT
--- NOTE | ~2017-02-07 | CR72 ---
[facility] A Service of [facility] & [facility] RADIOLOGY TEXT RESULTS PATIENT: HAZEL MONREAL LOCATION: [place] [address] : [birth year] UNIT #: [id number] AGE: [address]: Nathaly Martinez MD SEX: F ORDER DR: [id number] [facility] [address] [place], [place] [address] [id number] I MR#: [id number] Acc #: [id number] NAME: HAZEL MONREAL : 1945 SEX: F STUDY DATE/TIME: 02/20/2017 18:42 UNIT: [facility] ROOM: [facility] STUDY DESCRIPTION: CR Chest Single View Portable Attending Physician: Nathaly Martinez M.D. Ordering Physician: Venkat Dash M.D. Primary Care Physician: Luis Lujan M.D. MEDICAL IMAGING REPORT This report is preliminary unless electronic signature is present EXAM Portable chest HISTORY Respiratory failure for 2 weeks. FINDINGS ETT tip is 5 cm above the ana. Right IJ central line tip is at the junction of the SVC and right atrium. Mild right perihilar atelectasis or infiltrate, similar to earlier today. Persistent small right pleural effusion and mild atelectasis or infiltrate in the right base. Feeding tube extends into the stomach. Left lung is clear. IMPRESSION Stable chest compared to earlier today. Persistent mild infiltrate or atelectasis in the right mid lung and right base and minimal right pleural effusion. No new infiltrates. Dictated by... Felice Gordillo M.D. THIS IS AN ELECTRONICALLY VERIFIED REPORT Felice Gordillo M.D. at 02/20/2017 10:26 PM DFL/psc TD: 02/20/2017 22:12 JOB #: [id number] MEDICAL IMAGING REPORT Page 1 of 1 COPY
--- NOTE | ~2017-02-07 | FU ---
[facility] Nutrition Therapy DATE: 02/10/17 Patient: HAZEL MONREAL Physician: FRANCK Address: [address] [place] [address] Room/Bed: [address], Zip: [place] [address] Admit Date: 02/07/17 Date of : [birth year] Height: 4 11 Weight: 177 80.5 NUTRITION MONITORING/FOLLOW-UP: Reason: Enteral nutrition follow-up Anthropometrics: Ht: 4'11" Adm wt: 83.6 kg (184#) BMI: 37.2 Current wt: 80.5 kg (177#) Labs: Cl- 113, Gluc 120, BUN 53, Creat 2.0, Ca++ 6.9, Alb 1.9, AST 56, POC 119, GFR 24.7 Meds: Folic acid, NaCl, Pepcid, D5% I&O's: 4829/1421, last BM 02/10 x 3 Skin: No changes, no edema noted Estimated Nutrition Needs: 1601-0422 kcal (15-18 kcal/kg) 84-109 g protein (1.0-1.3 g/kg) Assessment: Chart reviewed, events noted. Pt remains intubated in ICU. Per RN, pt is receiving sedation PRN. DHT was placed and pt is receiving enteral nutrition support with Nepro @ 30 mL/hr + 30 mL prostat BID. Per pump history, pt received 108% of goal volume. Nutrition dx remains, see new evidence and recommendations below. Dx: Inadequate oral intake RT intubation AEB need for enteral nutrition support. -ACTIVE Intervention: 1. Continue current enteral nutrition regimen Monitoring, Evaluation and Goals: 1. Enteral nutrition; provide >80% of estimated needs and goal volume x 24 hrs -MET 2. Labs; WNL -IN PROGRESS 3. Weight; preserve lean body mass -IN PROGRESS Recommendations: 1. Continue enteral nutrition support with Nepro @ 30 mL/hr + 30 mL prostat BID. This provides: 1496 kcal/ 88 g protein/ 525 mL free H2O. 2. Obtain updated phos d/t kidney failure. 3. If extubated, recommend CAR TESTER evaluation. Advance diet as tolerated to consistent carb + healthy heart diet per CAR TESTER eval. [facility] Nutrition Therapy DATE: 02/10/17 Patient: HAZEL MONREAL Physician: FRANCK Address: [address] [place] [address] Room/Bed: [address], Zip: [place] [address] Admit Date: 02/07/17 Date of : [birth year] Height: 4 11 Weight: 177 80.5 Status: Pt is at a moderate nutritional risk. RD will f/u per protocol. Respectfully, Bev Davies, Endoscopy Technican Amada Jorge RD, LD Food and Nutritional Services [facility] cc: client file
--- NOTE | ~2017-02-07 | CR72 ---
[facility] A Service of [facility] & [facility] RADIOLOGY TEXT RESULTS PATIENT: HAZEL MONREAL LOCATION: [place] [address] : [birth year] UNIT #: [id number] AGE: [address]: Nathaly Martinez MD SEX: F ORDER DR: [id number] [facility] [address] [place], [place] [address] [id number] I MR#: [id number] Acc #: [id number] NAME: HAZEL MONREAL : 1945 SEX: F STUDY DATE/TIME: 02/26/2017 2:27 UNIT: [facility] ROOM: [facility] STUDY DESCRIPTION: CR Chest Single View Portable Attending Physician: Nathaly Martinez M.D. Ordering Physician: Stoney Kurtz M.D. Primary Care Physician: Luis Lujan M.D. MEDICAL IMAGING REPORT This report is preliminary unless electronic signature is present EXAM Portable chest INDICATION Shortness of air today. PROCEDURE Frontal view chest. COMPARISON 02/24/2017 FINDINGS Heart size unchanged. Tracheostomy tube stable. No new dense opacity. No visible pneumothorax. IMPRESSION Stable. Dictated by... Luciano Morales M.D. THIS IS AN ELECTRONICALLY VERIFIED REPORT Luciano Morales M.D. at 02/26/2017 9:57 PM BRYON/edward TD: 02/26/2017 09:59 JOB #: [id number] MEDICAL IMAGING REPORT Page 1 of 1 COPY
--- NOTE | ~2017-02-07 | FU ---
[facility] Nutrition Therapy DATE: 02/22/17 Patient: HAZEL MONREAL Physician: FRANCK Address: [address] [facility] Room/Bed: [address], Zip: [place] [address] Admit Date: 02/07/17 Date of : [birth year] Height: 4 11 Weight: 167 76 NUTRITION MONITORING/FOLLOW-UP: Reason: Enteral nutrition follow-up Admitting Dx: 71 y/o female admitted with PNA, UTI, AMS, sepsis, SOB, acute kidney failure Anthropometrics: Ht: 59", admission wt: 83.6 kg, current wt: 76 kg, BMI: 35 (based on average of weights since admission; Stage II obese), wt ranges since admission: 76-80.5 kg Labs: K+ 3.4, BUN 37, GFR 45.8, Na/Mg/glucose WNL, Phos WNL on 02/21 Meds: IV Levaquin, Pepcid, Solu-cortef, Furosemide, Propofol @ 8.2 ml/hr (providing 217 lipid kcals) I&O's: 2247/3364, last BM 02/21, RN notes multiple BM's but C. diff negative Skin: Suspected DTI L heel, redness tayla area, trace edema hands Estimated Nutrition Needs: 4867-0799 kcals per day (based on 17-22 kcals/average weight since admission 78.3 kg) 86-102 g protein per day (based on 1.1-1.3 g/average weight since admission 78.3 kg) Fluids consistent with kcal needs or per MD Assessment: Chart reviewed, events noted. Patient was reintubated on 02/18 and put on versed/fentanyl. Previously on EN with Nepro however this was changed to Jevity due to resolved acute renal failure. She has been tolerating Jevity 1.5 @ goal rate of 35 ml/hr + Prostat BID via DHT, received 88% goal volume past 24 hours per pump history. She is now receiving Propofol @ 8.2 ml/hr, providing an additional 217 lipid kcals for a total of 1857 kcals, 91 g protein and 730 ml water. This meets her protein needs but exceeds her kcal needs. Today during rounds patient was noted not to be a good wean candidate, vent day #16, january consider trach. Sepsis now resolved and renal function improved, glucose well controlled. She is on K/Mg protocol. Noted to have 200 ml GRV on 02/18 but have been minimal since that time. Noted to have multiple stools since admission but C. diff is negative. Average weight since admission is 78.3 kg, see re-estimated nutritional needs above based on this weight. Nutrition goals, dx and recs are stated below. Will continue to follow. Dx: 1) Inadequate oral intake r/t recent extubation AEB continued need for EN - NO LONGER RELEVANT 2) Stage II obese r/t possible poor dietary/lifestyle habits AEB BMI 35 - ACTIVE New nutrition dx: [facility] Nutrition Therapy DATE: 02/22/17 Patient: HAZEL MONREAL Physician: FRANCK Address: [address] [place] [address] Room/Bed: [address], Zip: [place] [address] Admit Date: 02/07/17 Date of : [birth year] Height: 4 11 Weight: 167 76 Inadequate oral intake r/t failed weans, continued intubation AEB need for nutrition support. Intervention: See recs below Monitoring, Evaluation and Goals: 1. EN to provide > 80% goal volume x 24 hours - MET 2. Tolerate diet advancement once appropriate - NOT MET, NO LONGER RELEVANT 3. Labs WNL - IN PROGRESS (K+ low) 4. Once appropriate; gradual weight loss towards a healthy BMI range - NOT APPROPRIATE Monitor: Per protocol, criteria to determine if above goals met Recommendations: 1. Continue replacing lytes prn, patient on K/Mg protocol. 2. If patient is to remain on Propofol (current rate 8.2 ml/hr providing an additional 217 lipid kcals) decrease Jevity 1.5 to 30 ml/hr and continue to give 30 ml Prostat BID per DHT to meet protein needs. If Propofol is to be D/C continue current enteral nutrition regimen: Jevity 1.5 @ 35 ml/hr + 30 ml Prostat BID, which meets her estimated nutrition needs. Consider placing a PEG tube for long-term nutrition support. 3. Wound care prn noting suspected DTI to left heel. Status: Mild-moderate nutrition risk Respectfully, Amada Jorge, RD, LD [facility] cc: client file
--- NOTE | ~2017-02-07 | CR72 ---
[facility] A Service of [facility] & [facility] RADIOLOGY TEXT RESULTS PATIENT: HAZEL MONREAL LOCATION: [address] : [birth year] UNIT #: [id number] AGE: [address]: Nathaly Martinez MD SEX: F ORDER DR: [id number] [facility] [address] [place], [place] [address] [id number] I MR#: [id number] Acc #: [id number] NAME: HAZEL MONREAL : 1945 SEX: F STUDY DATE/TIME: 02/10/2017 5:52 UNIT: [facility] ROOM: [facility] STUDY DESCRIPTION: CR Chest Single View Portable Attending Physician: Nathaly Martinez M.D. Ordering Physician: Lee Wilson M.D. Primary Care Physician: Luis Lujan M.D. MEDICAL IMAGING REPORT This report is preliminary unless electronic signature is present EXAM Portable chest INDICATION Follow up endotracheal tube and infiltrates. FINDINGS Today's portable view of the chest shows the endotracheal tube and central venous catheter remain in good position. The Dobbhoff tube has its tip below the stomach. The heart size is normal. The left lung is clear. There are dense infiltrates in the right mid lung and right lower lobe which are stable. Dictated by... Jarod Fontaine M.D. THIS IS AN ELECTRONICALLY VERIFIED REPORT Jarod Fontaine M.D. at 02/10/2017 4:54 PM AZRA/ashely TD: 02/10/2017 08:24 JOB #: [id number] MEDICAL IMAGING REPORT Page 1 of 1 COPY
--- NOTE | ~2017-02-07 | CR72 ---
[facility] A Service of [facility] RADIOLOGY TEXT RESULTS PATIENT: HAZEL MONREAL LOCATION: [place] [id number] : [birth year] UNIT #: [id number] AGE: [address]: Nathaly Martinez MD SEX: F ORDER DR: [id number] [facility] [address] [place], [place] [address] [id number] I MR#: [id number] Acc #: [id number] NAME: HAZEL MONREAL : 1945 SEX: F STUDY DATE/TIME: 02/22/2017 4:10 UNIT: [facility] ROOM: [facility] STUDY DESCRIPTION: CR Chest Single View Portable Attending Physician: Nathaly Martinez M.D. Ordering Physician: Nathaly Martinez M.D. Primary Care Physician: Luis Lujan M.D. MEDICAL IMAGING REPORT This report is preliminary unless electronic signature is present EXAM Single view chest INDICATIONS Respiratory failure. FINDINGS Single portable AP view of chest compared with 02/20/2017. Heart and mediastinal contours are unchanged. Support lines and tubes remain in place. There is slightly improved aeration in the right lower lobe. Diffuse right pulmonary opacities are otherwise unchanged. IMPRESSION Slight improvement in aeration in the right lower lobe. Dictated by... Dionisio Harris M.D. THIS IS AN ELECTRONICALLY VERIFIED REPORT Dionisio Harris M.D. at 02/24/2017 12:23 AM MARKY/ruy TD: 02/22/2017 07:20 JOB #: [id number] MEDICAL IMAGING REPORT Page 1 of 1 COPY
--- NOTE | ~2017-02-07 | CO ---
Unit #: [id number] #: [id number] Patient: HAZEL MONREAL [id number] [facility] [address] [place], [place] [address] [id number] I MR#: [id number] NAME: HAZEL MONREAL ROOM: [facility] Age: 71 Sex: F Admission Date: 02/07/2017 : 1945 Attending Physician: Nathaly Martinez M.D. Primary Care Physician: Luis Lujan M.D. Consultation Date: 02/24/2017 CONSULTATION REPORT REASON FOR CONSULTATION Anxiety, agitation, confusion. HISTORY OF PRESENT ILLNESS Ms. Ordaz is a 71-year-old white female, seen in room 13, CCU 3 on 02/24/[address] [facility]. The patient was extubated this morning and a tracheostomy was placed. The patient is breathing through ventilation through tracheostomy, needing restraint bilateral arms due to agitation, confusion, also severe anxiety. The patient's vital signs; temperature 98.9, pulse 85, respirations 22, blood pressure 117/60, oxygen saturation 98%. The patient was unable to give any coherent history, but admitted having problem with the anxiety. Chart reviewed. Obtained information from nursing staff. PAST PSYCHIATRIC HISTORY Remarkable for history of depression and anxiety, received outpatient services. No history of any suicide attempt. MEDICAL HISTORY Remarkable for history of chronic respiratory failure, obstructive sleep apnea, deep venous thrombosis, chronic kidney disease, hypertension, hypothyroidism, chronic pain, hyperlipidemia. The patient was admitted in unresponsive state. MEDICATION HISTORY The patient is on spironolactone, Lovenox, Lipitor, Coreg, propofol, KCl. FAMILY HISTORY AND SOCIAL HISTORY The patient has a good support system. No history of abuse. No history of any substance abuse. REVIEW OF SYSTEMS Complete review of systems is unremarkable except as mentioned above, agitation, requiring restraint. MENTAL STATUS EXAMINATION Vital signs; temperature 98.9, pulse 85, respirations 22, blood pressure 117/60, oxygen saturation 100%. General appearance; the patient dressed in hospital attire. The patient was breathing through trach ventilated and needing bilateral hand restraint due to agitation, confused. Attention span and concentration, poor. Speech, very minimal. Orientation, unable to assess. Mood and affect, flat. Thought process, unable to assess. Thought content, guarded and paranoid. Recent and remote memory, poor. Language, unable to assess. [facility], Unit #: [id number] #: [id number] Patient: HAZEL MONREAL impaired. Insight and judgment, impaired. DIAGNOSES Psychiatric: Delirium, F05; major depressive disorder, recurrent, severe, F33.2; anxiety disorder, not otherwise specified, F40.01. Secondary diagnosis: Deferred. Medical diagnosis: Please refer to H and P. Stressors: Psychosocial stressor. ASSESSMENT/PLAN 1. Supportive psychotherapy and psychoeducation provided to the patient, but the patient unable to comprehend much at this time. 2. Recommending at this time to continue with current treatment in CCU and plan to add Zyprexa 5 mg b.i.d. and Ativan 0.5 mg t.i.d. We will closely follow. If needed, consider further adjustment of medication. Please feel free to call if any questions telephone #[phone]. Dictated by... Bony Cooper/bonilla TD: 02/25/2017 00:01 JOB #: [id number] CONSULTATION REPORT Page 1 of 1 X Figueroa Shannon MD X CONSULTATION REPORT
--- NOTE | ~2017-02-07 | CO ---
Unit #: [id number] #: [id number] Patient: HAZEL STRONG [id number] [facility] [address] [place], [place] [address] [id number] I MR#: [id number] NAME: HAZEL STRONG ROOM: [facility] Age: 71 Sex: F Admission Date: 02/07/2017 : 1945 Attending Physician: Nathaly Martinez M.D. Primary Care Physician: Luis Lujan M.D. Consultation Date: 02/25/2017 CONSULTATION REPORT REASON FOR CONSULTATION Followup. DISCUSSION Ms. Hazel Strong is a 71-year-old white female, seen in CCU 3, bed 13 on 02/25/2017 at [facility]. The patient diagnosed with delirium, major depressive disorder, anxiety disorder, seems to be doing better with current medication. The patient was calm and cooperative. The patient dressed casually in hospital attire, lying in a propped up position. The patient has a trach, did not require any restraints. The patient was more relaxed, calm, but still having problem with confusion, unable to give any reliable information. Breathing through trach, ventilated. No side effects from medication. Complete review of systems is unremarkable except as mentioned above. Vital signs; temperature 99.9, pulse 78, respirations 18, blood pressure 111/58, oxygen saturation 100%. MENTAL STATUS EXAMINATION General appearance; the patient dressed casually in hospital attire. Attention span and concentration, poor. Speech, poor. Orientation, unable to assess. Mood and affect, flat. Thought process and thought content, unable to assess. Recent and remote memory, poor. Language, poor. Fund of knowledge, poor. Insight and judgment, poor. DIAGNOSES Psychiatric: 1. Delirium, F05. 2. Major depressive disorder, recurrent, severe, F33.2. 3. Anxiety disorder, not otherwise specified, F40.01. Secondary diagnosis: Deferred. Medical diagnosis: Please refer to H and P. ASSESSMENT/PLAN Recommending at this time to continue with current combination of medication. If needed, consider further adjustment of medication. We will continue to follow and make further adjustment of medication. Please feel free to call if any questions telephone #[phone]. Dictated by... Bony Cooper/bonilla Unit #: [id number] #: [id number] Patient: HAZEL STRONG TD: 02/26/2017 14:09 JOB #: [id number] CONSULTATION REPORT Page 1 of 1 X Figueroa Shannon MD CONSULTATION REPORT
--- NOTE | ~2017-02-07 | CR72 ---
[facility] A Service of [facility] RADIOLOGY TEXT RESULTS PATIENT: HAZEL MONREAL LOCATION: [place] [id number] : [birth year] UNIT #: [id number] AGE: [address]: Nathaly Martinez MD SEX: F ORDER DR: [id number] [facility] [address] [place], [place] [address] [id number] I MR#: [id number] Acc #: [id number] NAME: HAZEL MONREAL : 1945 SEX: F STUDY DATE/TIME: 02/19/2017 4:59 UNIT: [facility] ROOM: [facility] STUDY DESCRIPTION: CR Chest Single View Portable Attending Physician: Nathaly Martinez M.D. Ordering Physician: Venkat Dash M.D. Primary Care Physician: Luis Lujan M.D. MEDICAL IMAGING REPORT This report is preliminary unless electronic signature is present EXAM Single view chest. INDICATION Respiratory failure. FINDINGS Single portable AP of the chest compared to 02/18/2017 and 02/16/2017. Support lines and tubes remain in place. Heart and mediastinal contours are unchanged. Patchy bilateral airspace opacities are similar to the prior study. No pneumothorax. IMPRESSION No interval change. Dictated by... Dionisio Harris M.D. THIS IS AN ELECTRONICALLY VERIFIED REPORT Dionisio Harris M.D. at 02/19/2017 11:14 PM MARKY/delfina TD: 02/19/2017 08:50 JOB #: [id number] MEDICAL IMAGING REPORT Page 1 of 1 COPY
--- NOTE | ~2017-02-07 | CT57 ---
[facility] A Service of [facility] RADIOLOGY TEXT RESULTS PATIENT: HAZEL MONREAL [facility]ATION[facility] : [birth year] UNIT #: [id number] AGE: [address]: Nathaly Martinez MD SEX: F ORDER DR: [id number] [facility] [address] [place], [place] [address] [id number] E MR#: [id number] Acc #: [id number] NAME: HAZEL MONREAL : 1945 SEX: F STUDY DATE/TIME: 02/07/2017 UNIT: [facility] ROOM: STUDY DESCRIPTION: CT Chest Wo Cont Attending Physician: Jordi Quintero M.D. Ordering Physician: Jordi Quintero M.D. Primary Care Physician: Luis Lujan M.D. MEDICAL IMAGING REPORT This report is preliminary unless electronic signature is present EXAM CT chest without contrast 02/07/2017 12:54 hours HISTORY 71-year-old with new onset of dyspnea and confusion today. Bruising on left side of head. COMPARISON Chest x-ray 02/07/2017, 01/13/2016 TECHNIQUE Helical noncontrasted images were obtained from the thoracic inlet through the adrenal glands. Sagittal and coronal reconstructions were performed. No contrast was administered. Total exam DLP for the head and chest exam today is 2117 mGy-cm. The CT exam was performed with one or more of the following radiation dose reduction techniques: automatic exposure control, adjustment of mA and/or kV according to patient size, and iterative reconstruction. FINDINGS Images through the thoracic inlet demonstrate no thyroid lesion or supraclavicular adenopathy. There is a right IJ catheter with tip terminating in the SVC just above the right atrium. There is an endotracheal tube present with tip terminating above the ana. The aorta, pulmonary arteries, cardiac chambers and pericardium are normal. There is no esophageal lesion. The right lung is abnormal. There is patchy airspace density in the right upper lobe and diffuse airspace density in the right lower lobe with minimal patchy involvement of the right middle lobe. There is no pleural effusion. The left lung is clear with the exception STS. [facility] A Service of [facility] RADIOLOGY TEXT RESULTS PATIENT: HAZEL MONREAL LOCATION: [facility]-13 : [birth year] UNIT #: [id number] AGE: [address]: Nathaly Martinez MD SEX: F ORDER DR: of minimal linear atelectasis or scar in the lingula. Limited views through the upper abdomen are negative. IMPRESSION 1. Diffuse, dense airspace change with air bronchograms in the right lower lobe greater than right upper lobe and right middle lobe most likely representing multifocal pneumonia. 2. Satisfactory position of support equipment. 3. The left lung is clear and there is no pleural effusion or adenopathy. Dictated by... Cheryl Luis M.D. THIS IS AN ELECTRONICALLY VERIFIED REPORT Cheryl Luis M.D. at 02/07/2017 5:27 PM MARTINA/ruy TD: 02/07/2017 14:27 JOB #: [id number] MEDICAL IMAGING REPORT Page 1 of 1 COPY
--- NOTE | ~2017-02-07 | CR72 ---
[facility] A Service of [facility] RADIOLOGY TEXT RESULTS PATIENT: HAZEL MONREAL LOCATION: [address] : [birth year] UNIT #: [id number] AGE: [address]: Nathaly Martinez MD SEX: F ORDER DR: [id number] [facility] [address] [place], [place] [address] [id number] I MR#: [id number] Acc #: [id number] NAME: HAZEL MONREAL : 1945 SEX: F STUDY DATE/TIME: 02/11/2017 5:43 UNIT: [facility] ROOM: [facility] STUDY DESCRIPTION: CR Chest Single View Portable Attending Physician: Nathaly Martinez M.D. Ordering Physician: Stoney Kurtz M.D. Primary Care Physician: Luis Lujan M.D. MEDICAL IMAGING REPORT This report is preliminary unless electronic signature is present EXAM Portable chest 02/11/2017 HISTORY Hypotension, respiratory failure. Follow-up endotracheal tube. COMPARISON 02/10 FINDINGS Portable view of the chest was obtained. The endotracheal tube tip is 3 cm above the ana. The central venous catheter is in good position. Left lung is clear. There is dense right mid lung and right lower lobe infiltrates which are stable. IMPRESSION No change in dense right lung infiltrates. The endotracheal tube is in good position. Dictated by... Jarod Fontaine M.D. THIS IS AN ELECTRONICALLY VERIFIED REPORT Jarod Fontaine M.D. at 02/11/2017 8:15 AM AZRA/mercedes TD: 02/11/2017 07:19 JOB #: [id number] MEDICAL IMAGING REPORT [facility] A Service [facility] RADIOLOGY TEXT RESULTS PATIENT: HAZEL MONREAL LOCATION: [address] : [birth year] UNIT #: [id number] AGE: [address]: Nathaly Martinez MD SEX: F ORDER DR: Page 1 of 1 COPY
--- NOTE | ~2017-02-07 | CO ---
Unit #: [id number] #: [id number] Patient: HAZEL MONREAL [id number] [address] [place], [place] [address] [id number] I MR#: [id number] NAME: HAZEL MONREAL ROOM: [facility] Age: 71 Sex: F Admission Date: 02/07/2017 : 1945 Attending Physician: Nathaly Martinez M.D. Primary Care Physician: Luis Lujan M.D. CONSULTATION REPORT HISTORY OF PRESENT ILLNESS A 71-year-old white female with a history of DVT and pulmonary embolus, previously maintained on Eliquis, who presented with altered mental status and hypoxemic respiratory failure. Chest x-ray revealed a new right lower lobe and middle lobe infiltrate. CT scan confirmed this. On admission, she was required intubation. We were asked to see. Her lab work is significant for creatinine of 4.4, previous creatinine was 1.6 in 01/2016, potassium was 5.7, sodium was 136, CO2 was 14. Lactic acid level was 1.2 and 1.0. Coagulation studies were normal. Cardiac enzymes were negative. White count was 6500, hematocrit was 36.2, platelet count was normal. Urine tox screen positive for benzodiazepines and opiates. Urinalysis; 2+ protein, 3+ leukocyte esterase, positive for red blood cells, 4+ bacteria. PAST MEDICAL HISTORY History of DVT, pulmonary embolus, lifelong nonsmoker. Apparently, had been on Eliquis, followed by Dr. Traore. History of diabetes, chronic kidney disease, anxiety, depression, hypertension, chronic pain, obstructive sleep apnea, and hyperlipidemia. PAST SURGICAL HISTORY Total knee replacement, appendectomy, cholecystectomy. ALLERGIES Clindamycin, penicillin, sulfa, and erythromycin. FAMILY HISTORY Negative for lung disease. SOCIAL HISTORY No smoking, alcohol, or illicit drug use. HOME MEDICATIONS Please see med rec list including Percocet, ibuprofen, diltiazem, pilocarpine, Ventolin, Symbicort, prednisone, Levaquin, Zestril. I am not sure all that is right. REVIEW OF SYSTEMS Not possible, the patient intubated. PHYSICAL EXAMINATION GENERAL: White female. VITAL SIGNS: Blood pressure is 140/100, pulse is 101, respiratory rate 20, afebrile. HEENT: Normocephalic and atraumatic. Pupils are equal, round, and Unit #: [id number] #: [id number] Patient: HAZEL MONREAL reactive. Sclerae nonicteric. Nasal passages patent. Orally intubated. NECK: Supple. Trachea midline. No cervical or supraclavicular lymphadenopathy. LUNGS: Reveal scattered rhonchi bilaterally. CARDIAC: Heart sounds distant. Regular rate and rhythm. Could not appreciate murmur, rub, or gallop. ABDOMEN: Nontender. Bowel sounds present. No hepatosplenomegaly. EXTREMITIES: Without clubbing, cyanosis, or edema. Has some bruising on her right knee. Does move to pain. DIAGNOSTIC STUDIES LABORATORY RESULTS: Personally reviewed. IMAGING STUDIES: Chest CT scan reviewed. Chest x-ray reviewed. Head CT, nothing acute. IMPRESSION 1. Acute hypoxemic respiratory failure. 2. Right-sided pneumonia, rule out gram-negative methicillin-resistant Staphylococcus aureus. 3. History of deep vein thrombosis and pulmonary embolus. 4. Acute kidney injury, possibly rhabdomyolysis in the setting of chronic kidney disease. 5. Other problems as mentioned above including diabetes, hyperlipidemia, hypertension, obstructive sleep apnea. PLAN Broad-spectrum antibiotics for pneumonia and possible urinary tract infection. Vent support to maintain adequate oxygenation and ventilation. Correct acidosis, hydrate with fluids to see if renal function improves, Renal is following, discontinue nonsteroidals. DVT prophylaxis. We will need to contact Dr. Traore regarding why she is not on anticoagulation. We will follow up morning labs. We will recheck stat ABG and potassium to ensure acute dialysis is required. We will make further recommendations pending this. Dictated by... Stoney Kurtz M.D. BRYANNA/bonilla TD: 02/08/2017 05:14 JOB #: [id number] CONSULTATION REPORT Page 1 of 1 X Stoney Kurtz MD CONSULTATION REPORT
--- NOTE | ~2017-02-07 | FU ---
[facility] Nutrition Therapy DATE: 02/17/17 Patient: HAZEL MONREAL Physician: FRANCK Address: [address] [facility] Room/Bed: [address], Zip: [place] [address] Admit Date: 02/07/17 Date of : 47 Height: 4 11 Weight: 173 78.5 NUTRITION MONITORING/FOLLOW-UP: Reason: Enteral nutrition follow-up Admitting Dx: 71 y/o female admitted with UTI, sepsis, PNA, SOB, AMS, kidney failure Anthropometrics: Ht: 59", admission wt: 83.6 kg, current wt: 78.5 kg (02/17), BMI: 35 (Stage II obese; based on current weight) Labs: Na 146, BUN 46 (trending down), glucose POC 75-103, GFR 41.5 (trending up), Mg/K+ WNL, Phos WNL on 02/16 Meds: Solu-cortef, Pepcid, IV Levaquin, Folic acid, Precedex GI: Last BM 02/16 (loose) Skin: Blister L heel, redness tayla area, bruising/scars noted, generalized-1+ edema noted Estimated Nutrition Needs: 9986-3025 kcals per day (17-22 kcals/kg CURRENT weight) 86-102 g protein per day (1.1-1.3 g/kg CURRENT weight) Fluids consistent with kcal needs or per MD Assessment: Chart reviewed, events noted. Patient extubated this morning to nasal cannula, RN to order ABG, patient wheezing and is weak. She has been in restraints x 10 days, PT ordered. She is receiving enteral nutrition with Nepro @ 30 ml/hr + Prostat BID per DHT, which she has been tolerating with minimal residuals. She received 100% goal volume past 24 hours per pump history. Phos lab obtained yesterday, which was normal. Based on her labs and improving kidney function she no longer requires specialized EN formula- gave verbal recommendation to RN to change to Jevity, however RN thinks the patient will likely be appropriate for RESIDENT ADVISOR eval tomorrow, so plan is to continue Nepro at least until tomorrow. See re-estimated BMI and nutrition needs above based on current body weight. Blood sugars have been well controlled. See nutritional goals, dx and recs as stated below. Will continue to follow. Dx: 1) Inadequate oral intake r/t intubation AEB need for EN - NO LONGER RELEVANT 2) Stage II obese r/t possible poor lifestyle habits AEB BMI 37.5 - NO LONGER RELEVANT New nutrition dx: 1) Inadequate oral intake r/t recent extubation AEB need for continued EN. 2) Stage II obese r/t possible poor dietary/lifestyle habits AEB BMI 35. [facility] Nutrition Therapy DATE: 02/17/17 Patient: HAZEL MONREAL Physician: FRANCK Address: [address] [place] [address] Room/Bed: [address], Zip: [place] [address] Admit Date: 02/07/17 Date of : [birth year] Height: 4 11 Weight: 173 78.5 Intervention: Change EN formula, RESIDENT ADVISOR once apprpriate Monitoring, Evaluation and Goals: 1. EN to provide > 80% goal volume x 24 hrs - MET 2. Improvement in labs (glucose, BUN, K/Phos) - MET 3. Preserve lean body mass - IN PROGRESS New goals: 1. EN to provide > 80% goal volume x 24 hours. 2. Tolerance of oral diet advancement once applicable. 3. Labs will remain WNL. 4. Once appropriate: gradual weight loss towards a healthy BMI range. Monitor: Per protocol, criteria to determine if above goals met Recommendations: 1. RESIDENT ADVISOR evaluation once appropriate. Advance to least restrictive oral diet per their recs. Once the patient is medically stable and eating well, will consider healthy heart diet to promote gradual weight loss towards a healthy BMI. Although the patient has a history of diabetes her A1C was normal when last checked and blood glucose has been well controlled. Will provide diet education if appropriate. 2. If advanced to oral diet the patient may initially require oral nutrition supplements to meet kcal/protein needs due to her clinical condition and weakness. If oral diet is ordered RD will order the appropriate supplements based on intake and following the patient during daily rounds. 3. If the patient fails the RESIDENT ADVISOR eval continue enteral nutrition but change formula to Jevity 1.5 with goal rate of 35 ml/hr and continue to give 30 ml Prostat BID through DHT. This will provide 1640 kcals, 91 g protein and 730 ml water. Free water flushes per MD noting hypernatremia. Status: Moderate nutrition risk Respectfully, Amada Jorge, SHANTEL, LD [facility] Nutrition Therapy DATE: 02/17/17 Patient: HAZEL MONREAL Physician: FRANCK Address: [address] [place] [address] Room/Bed: [address], Zip: [place] [address] Admit Date: 02/07/17 Date of : [birth year] Height: 4 11 Weight: 173 78.5 Food and Nutritional Services [facility] cc: client file
--- NOTE | ~2017-02-07 | EKG ---
PATIENT: HAZEL MONREAL UNIT #: [id number] Ventricular Rate: 88 BPM Atrial Rate: 88 BPM P-R Interval: 134 ms QRS Duration: 74 ms Q-T Interval: 346 ms QTC Calculation(Bezet): 418 ms P [place]: 33 degrees Calculated R [place]: 7 degrees Calculated T [place]: 60 degrees Diagnosis Line: Normal sinus rhythm Diagnosis Line: Normal ECG Diagnosis Line: When compared with ECG of 07-FEB-2017 12:38, Diagnosis Line: (unconfirmed) Diagnosis Line: Questionable change in QRS duration Diagnosis Line: Confirmed by KAMINI PARKS MD ([id number]) on 02/09/2017 Diagnosis Line: 9:59:49 AM INTERPRETING MD: KASEY MENG
--- NOTE | ~2017-02-07 | EKG ---
PATIENT: HAZEL MONREAL UNIT #: [id number] Ventricular Rate: 102 BPM Atrial Rate: 102 BPM P-R Interval: 140 ms QRS Duration: 82 ms Q-T Interval: 338 ms QTC Calculation(Bezet): 440 ms P [place]: 58 degrees Calculated R [place]: 59 degrees Calculated T [place]: 66 degrees Diagnosis Line: Sinus tachycardia Diagnosis Line: Otherwise normal ECG Diagnosis Line: When compared with ECG of 08-FEB-2017 11:30, Diagnosis Line: Minimal criteria for Anterior infarct are no Diagnosis Line: longer Present Diagnosis Line: T wave inversion no longer evident in Lateral Diagnosis Line: leads Diagnosis Line: Confirmed by ANAY ALLAN MD ([id number]) on 02/14/2017 Diagnosis Line: 5:36:24 AM INTERPRETING MD: JERRELL MENG
--- NOTE | ~2017-02-07 | EKG ---
PATIENT: HAZEL MONREAL UNIT #: [id number] Ventricular Rate: 93 BPM Atrial Rate: 93 BPM P-R Interval: 150 ms QRS Duration: 90 ms Q-T Interval: 340 ms QTC Calculation(Bezet): 422 ms P [place]: 74 degrees Calculated R [place]: 51 degrees Calculated T [place]: 68 degrees Diagnosis Line: Normal sinus rhythm Diagnosis Line: Normal ECG Diagnosis Line: When compared with ECG of 12-JAN-2016 09:47, Diagnosis Line: No significant change was found Diagnosis Line: Confirmed by KAMINI PARKS MD ([id number]) on 02/09/2017 Diagnosis Line: 9:45:59 AM INTERPRETING MD: KASEY MENG
--- NOTE | ~2017-02-07 | CO ---
Unit #: [id number] #: [id number] Patient: HAZEL STRONG [id number] [address] [address] [id number] I MR#: [id number] NAME: HAZEL STRONG ROOM: [facility] Age: 71 Sex: F Admission Date: 02/07/2017 : 1945 Attending Physician: Nathaly Martinez M.D. Primary Care Physician: Luis Lujan M.D. Consultation Date: 02/07/2017 CONSULTATION REPORT REASON FOR CONSULTATION Acute on chronic kidney injury and hyperkalemia. HISTORY OF PRESENT ILLNESS Ms. Strong is a 71-year-old female, who presented to the emergency room with complaints of shortness of breath. All of the history was obtained from the chart, as there is no family present and the patient is currently sedated and intubated on the vent. Nursing reports also that there was concern about some mental status changes that had been ongoing for a few days before this shortness of breath started. The patient was intubated here in the emergency room for respiratory distress and has required fluids and Levophed for blood pressure support for hypotension. She has been diagnosed with pneumonia and has been started on broad-spectrum antibiotics. Pulmonary has seen the patient and is adjusting the ventilator settings. She does appear to be urinating and nursing has reported cloudy urine. There has been no hematuria. No reports of rashes or chills. She is currently requiring 100% FiO2. Home medication list is not complete, but I do see some ibuprofen on there. PAST MEDICAL HISTORY Taken from the old H and P from 04/2016 shows history of DVT and pulmonary embolus, history of diabetes although I do not see any medications for this, chronic kidney disease, anxiety and depression, hypertension, obstructive sleep apnea, hyperlipidemia, chronic pain syndrome. PAST SURGICAL HISTORY Total knee replacement, cholecystectomy, appendectomy, bilateral hip replacements, tubal ligation, bladder repair. HOME MEDICATIONS According to the ER sheet are as follows; Percocet, ibuprofen, diazepam, pilocarpine, Ventolin, Symbicort, prednisone, Levaquin, Vistaril, diltiazem, Norvasc, K-Dur, folic acid, gabapentin, levothyroxine, Eliquis, and mirtazapine. ALLERGIES She has quoted allergies to clindamycin, penicillins, sulfa drugs, and erythromycin base. FAMILY HISTORY Not known and there is no mention of any family history of kidney problems on the old chart. SOCIAL HISTORY Unit #: [id number] #: [id number] Patient: HAZEL STRONG The patient lives with family. She is apparently a nonsmoker with no history of alcohol or drug abuse. REVIEW OF SYSTEMS A complete 12-point review of systems was attempted, but simply not able to be obtained with the patient being sedated on the ventilator. There has been no fevers, no pain issues, no rashes, no bleeding, no hematuria. Unless otherwise indicated, the review of systems was negative. PHYSICAL EXAMINATION VITAL SIGNS: The patient is afebrile, pulse 100, respiratory rate 20, blood pressure 159/90, now blood pressure got as low as 75/55. GENERAL: This is a 71-year-old female sedated on the ventilator, in no distress at this time. HEENT: Head is atraumatic and normocephalic. Eyes show pink conjunctivae with no scleral icterus. No nasal drainage or nosebleed. The patient is orally intubated. NECK: Shows no rigidity, no JVD. HEART: Tachycardic and regular with no significant murmur or rub appreciated. LUNGS: Have scattered rhonchi present much worse on the right compared to the left. Breathing is nonlabored on the vent requiring 100% FiO2. ABDOMEN: Soft and nontender. There are bowel sounds present. No masses appreciated. EXTREMITIES: No lower extremity cyanosis or clubbing or edema. SKIN: Dry without rashes. GENITOURINARY: Pugh catheter is in place with cloudy urine, it is nonbloody. MUSCULOSKELETAL: No joint effusions noted. NEUROLOGICAL: Unable to be assessed on the vent. LYMPHATIC: There is no neck or cervical lymphadenopathy. DIAGNOSTIC STUDIES LABORATORY RESULTS: ABG on admission showed a pH of 7.1, pCO2 47, PO2 269, bicarb was just 15. Repeat blood gas just drawn showed a pH is still of 7, pCO2 50, PO2 124. UA on admission did show numerous white blood cells as well as bacteria. Troponin was negative. CBC showed a white count of 6, hemoglobin of 11, platelet count 191. No peripheral eosinophilia. Lactic acid level was 1. INR was 1. Initial chemistry showed a sodium of 136, potassium 5.7, chloride 109, bicarb 14, glucose 105, BUN 61, creatinine 4.4. Calcium was 7.5, but albumin was only 3.4, phosphorus high at 6.6, CK level was 3200, amylase 128, magnesium level 2. Ammonia level was within normal limits. Drug screen was positive for benzos and opioids. Prior creatinine to this one was 1.6 in 01/2016. Previous UAs have been negative for protein here at [facility] and primarily negative for blood. IMAGING STUDIES: CT of the head showed no acute abnormality. CT of the chest showed a primarily right-sided pneumonia, left lung was clear. I did see a CT scan of the abdomen done in 05/2015 with unremarkable kidneys. Unit #: [id number] #: [id number] Patient: HAZEL STRONG ASSESSMENT AND PLAN 1. Acute on chronic kidney disease, stage 3. This appears to be underlying chronic kidney disease from hypertension, now with acute kidney injury due to sepsis syndrome with pneumonia and low blood pressure. I also see some ibuprofen use on the chart at home. In addition, rhabdomyolysis may be contributing to an acute tubular necrosis scenario as well. For now, we will push fluids and support blood pressure as needed. She is currently getting Levophed. Certainly, if kidney function or potassium get worse from here, we may have to consider dialysis. Supportive care is in place. 2. Hyperkalemia. It looks like she may have been on some potassium at home, which the course will be stopped. We will put her on a bicarbonate drip to help correct and can use Lasix and even Kayexalate if needed tonight. 3. Metabolic acidosis. The patient also has a respiratory acidosis. We will be changing her fluids to a bicarbonate based fluid replacement and I will push some bicarb here tonight. 4. Pneumonia with sepsis syndrome, on antibiotics. 5. Urinary tract infection, on antibiotics. 6. History of deep vein thrombosis and pulmonary embolism. 7. History of chronic pain syndrome and anxiety. 8. History of hypertension. 9. History of obstructive sleep apnea. I would like to thank Dr. Martinez for this consult and the opportunity to participate in evaluation and care of Ms. Strong. Dictated by... Laureano Edwards Jr., M.D. ENRICO/bonilla TD: 02/08/2017 01:48 JOB #: [id number] CONSULTATION REPORT Page 1 of 1 X Laureano Edwards MD CONSULTATION REPORT
--- NOTE | ~2017-02-07 | CO ---
Unit #: [id number] #: [id number] Patient: HAZEL MONREAL [id number] [place] [id number] [facility]. [place], [place] [address] [id number] I MR#: [id number] NAME: HAZEL MONREAL ROOM: [facility] Age: 71 Sex: F Admission Date: 02/07/2017 : 1945 Attending Physician: Nathaly Martinez M.D. Primary Care Physician: Luis Lujan M.D. Consultation Date: 02/27/2017 CONSULTATION REPORT REASON FOR CONSULTATION Followup. DISCUSSION Ms. Ordaz is a 71-year-old female, seen in CCU 3, bed 13, on 02/27/2017 at [facility]. The patient currently intubated as the patient was very aggressive, agitated while pulling on her tubes. The patient was ventilated through the trach earlier, but due to aggression, the patient was reintubated and currently on Precedex drip and still having agitation requiring bilateral hand restraints. The patient unable to give any coherent history. Still taking medications Zyprexa and Ativan. The patient is also on propofol. The patient's son was at the bedside who reported that the patient's mom was on Zoloft and Remeron and Ativan prior to coming to the hospital. The patient's vital signs are pulse 82, respirations 18, blood pressure 150/74, oxygen saturation 100%. REVIEW OF SYSTEMS Complete review of systems unobtainable. MENTAL STATUS EXAMINATION General appearance, the patient dressed in hospital attire, bilateral hand restraints noted. The patient is also currently ventilated. Attention span and concentration, unable to assess. Speech, orientation, mood and affect, thought process, thought content, unable to assess. Recent and remote memory, unable to assess. Language, unable to assess. Fund of knowledge, unable to assess. Insight and judgment, impaired. DIAGNOSIS Psychiatric: Delirium, F05. ASSESSMENT AND PLAN 1. Supportive psychotherapy and psychoeducation provided to the patient's son who was at the bedside and explained about treatment plan. Answered all his questions. 2. Advised to continue with current medication at this time. We will continue to follow. If needed, consider further adjustment of medication. Please feel free to call if any questions, telephone #[phone]. At this time also, okay to continue with bilateral hand restraint for safety of the patient. I planned to remove as soon as the patient is able to show safe behavior. Dictated by... Figueroa Shannon M.D. Unit #: [id number] #: [id number] Patient: HAZEL MONREAL MADELYN/modl TD: 03/01/2017 10:01 JOB #: [id number] CONSULTATION REPORT Page 1 of 1 X Figueroa Shannon MD CONSULTATION REPORT
--- NOTE | ~2017-02-07 | CR72 ---
[facility] A Service of [facility] & [facility] RADIOLOGY TEXT RESULTS PATIENT: HAZEL MONREAL LOCATION: [place] [address]-13 : [birth year] UNIT #: [id number] AGE: [address]: Nathaly Martinez MD SEX: F ORDER DR: [id number] [facility] [address] [place], [place] [address] [id number] I MR#: [id number] Acc #: [id number] NAME: HAZEL MONREAL : 1945 SEX: F STUDY DATE/TIME: 02/20/2017 5:29 UNIT: [facility] ROOM: [facility] STUDY DESCRIPTION: CR Chest Single View Portable Attending Physician: Nathaly Martinez M.D. Ordering Physician: Venkat Dash M.D. Primary Care Physician: Luis Lujan M.D. MEDICAL IMAGING REPORT This report is preliminary unless electronic signature is present EXAM Single view chest. INDICATION Respiratory failure. FINDINGS Single, portable, AP view of the chest compared to 02/19/2017. Support lines and tubes are unchanged. There are patchy bilateral airspace opacities in both lungs. Right hemidiaphragm is elevated. No pneumothorax. IMPRESSION No interval change. Patchy bilateral airspace opacities are similar to the prior study. Dictated by... Dionisio Harris M.D. THIS IS AN ELECTRONICALLY VERIFIED REPORT Dionisio Harris M.D. at 02/21/2017 12:04 AM MARKY/delfina TD: 02/20/2017 07:12 JOB #: [id number] MEDICAL IMAGING REPORT Page 1 of 1 COPY
--- NOTE | ~2017-02-07 | CT71 ---
[facility] A Service of [facility] & [facility] RADIOLOGY TEXT RESULTS PATIENT: HAZEL MONREAL LOCATION: [facility] C[facility]CU3-13 : [birth year] UNIT #: [id number] AGE: [address]: Nathaly Martinez MD SEX: F ORDER DR: [id number] [facility] [address] [place], [place] [address] [id number] E MR#: [id number] Acc #: [id number] NAME: HAZEL MONREAL : 1945 SEX: F STUDY DATE/TIME: 02/07/2017 12:54 UNIT: [facility] ROOM: STUDY DESCRIPTION: CT Head Wo Contrast Attending Physician: Jordi Quintero M.D. Ordering Physician: Jordi Quintero M.D. Primary Care Physician: Luis Lujan M.D. MEDICAL IMAGING REPORT This report is preliminary unless electronic signature is present EXAM CT head 02/07/17 HISTORY Dyspnea, new onset. Confusion today. Bruising on left side of head. The CT exam was performed with one or more of the following radiation dose reduction techniques: automatic exposure control, adjustment of mA and/or kV according to patient size, and iterative reconstruction. FINDINGS CT head performed skull base to vertex without intravenous contrast. Study degraded by streak artifact from monitoring equipment overlying the patient's head not removed prior to study. Brainstem unremarkable. Cerebellum and cerebellar hemispheres show normal hightower matter-white matter differentiation. No hemorrhage. There is no clear indication of acute cortical ischemia. There are periventricular subcortical and deep white matter tract hypodensities bilaterally likely reflecting sequela of chronic microvascular ischemia. No change from comparison dated 01/31/17. Midline structures are nondisplaced and the basal ganglia are intact. Ventricles, cisterns and sulci show normal size and contour. There is no intra or extraaxial mass effect or abnormal intracranial fluid collection. The visualized intraorbital soft tissues are unremarkable. The visualized paranasal sinuses and mastoid air cells show mild mucosal thickening ethmoid and sphenoid sinuses. No air fluid levels. No fracture. IMPRESSION 1. No acute abnormality seen in the brain. If patient has ongoing neurologic symptoms, consider followup imaging. No significant change in appearance compared to 01/31/17. Chronic findings include: Periventricular, subcortical and deep white matter tract probable sequelae of chronic microvascular ischemia, as per calcifications. STS. [facility] A Service of [facility] & [facility] RADIOLOGY TEXT RESULTS PATIENT: HAZEL MONREAL LOCATION: [address] : [birth year] UNIT #: [id number] AGE: [address]: Nathaly Martinez MD SEX: F ORDER DR: 2. Mucosal thickening in sphenoid and ethmoid sinuses. There is no indication of air fluid level to suggest acute sinusitis. 3. No fracture. Dictated by... Luis Carey M.D. THIS IS AN ELECTRONICALLY VERIFIED REPORT Luis Carey M.D. at 02/08/2017 3:51 PM STEPHY/ruy TD: 02/07/2017 14:40 JOB #: [id number] MEDICAL IMAGING REPORT Page 1 of 1 COPY
--- NOTE | ~2017-02-07 | A ---
[facility] Nutrition Therapy DATE: 02/08/17 Patient: HAZEL MONREAL Physician: FRANCK Address: [address] [place] [address] Room/Bed: [address], Zip: [place] [address] Admit Date: 02/07/17 Date of : [birth year] Height: Weight: 184 83.5 NUTRITIONAL ASSESSMENT: REASON: NPO in ICU 71 yo female admitted for acute respiratory failure, PNA, kidney failure, AMS, sepsis PMH: Chronic respiratory failure, TIO, deep venous thrombosis, CKD, HTN, DM, hypothyroidism, HLD, anxiety, depression Anthropometrics: Ht: 4'11" Wt: 83.6 kg (184#) BMI: 37.2 Labs: Gluc 124, BUN 60, Creat 3.7, Ca++ 6.8, Alb 2.5, AST 123, ALT 44, Phos 6.6, POC 205, Amyl 128, GFR 11.7 Meds: Levaquin, NaCl, Pepcid, D5%, Protonix, Sodium bicarbonate I/O & Bowel function: 2410/665, last BM 02/08 Skin Integrity: Scar (R knee/billateral hips), bruises (BUE/L eye), no edema noted Estimated Nutrition Needs: 5220-6011 kcal (15-18 kcal/kg) 84-109 g protein (1.0-1.3 g/kg) Assessment: Chart reviewed, events noted. Per chart, pt was unresponsive and brought to ER. Pt is currently intubated in the ICU with NPO status. No family at pt's bedside. Per RN, plans in place for DHT. See recommendations below. Dx: Inadequate oral intake RT clinical condition AEB NPO status. Intervention: 1. Enteral nutrition Monitoring, Evaluation and Goals: 1. Enteral nutrition; provide >80% of estimated needs and goal volume x 24 hrs 2. Labs; WNL 3. Weight; preserve lean body mass Recommendations: 1. Once medically feasible, place DHT and initiate enteral nutrition with Nepro @ 10 mL/hr + 30 mL prostat BID, advance 10 mL q 8 hrs to goal rate of 30 mL/hr + 30 mL prostat BID. This will provide: 1496 kcal/ 88 g protein/ 525 mL free H2O. [facility] Nutrition Therapy DATE: 02/08/17 Patient: HAZEL MONREAL Physician: FRANCK Address: [address] [facility] Room/Bed: [address], Zip: [place] [address] Admit Date: 02/07/17 Date of : [birth year] Height: Weight: 184 83.5 2. If extubated, advance diet as tolerated to healthy heart + consistent carb diet per WRI[facility]ER evaluation. Pt is at a moderate-severe nutritional risk. RD will f/u per protocol. Respectfully, Bev Davies, Cargo Broker Alina Perez, RD, LD Food and Nutritional Services [facility] [place] [facility] cc: client file
--- NOTE | ~2017-02-07 | CR7 ---
[facility] A Service of [facility] & [facility] RADIOLOGY TEXT RESULTS PATIENT: HAZEL MONREAL LOCATION: [address] : [birth year] UNIT #: [id number] AGE: [address]: Nathaly Martinez MD SEX: F ORDER DR: [id number] [facility] [address] [place], [place] [address] [id number] I MR#: [id number] Acc #: [id number] NAME: HAZEL MONREAL : 1945 SEX: F STUDY DATE/TIME: 02/08/2017 11:52 UNIT: [facility] ROOM: [facility] STUDY DESCRIPTION: CR Abdomen Single AP View Attending Physician: Nathaly Martinez M.D. Ordering Physician: Stoney Kurtz M.D. Primary Care Physician: Luis Lujan M.D. MEDICAL IMAGING REPORT This report is preliminary unless electronic signature is present EXAM KUB 02/08/2017 INDICATION Feeding tube placement. FINDINGS Supine view of the abdomen was obtained. Tip of a flexible feeding tube is in the proximal stomach. Consider advancing the tube 5-10 cm. Dictated by... Edenilson Gupta Jr., M.D. THIS IS AN ELECTRONICALLY VERIFIED REPORT Edenilson Gupta Jr., M.D. at 02/08/2017 4:48 PM VIVIANE/ashely TD: 02/08/2017 13:08 JOB #: [id number] MEDICAL IMAGING REPORT Page 1 of 1 COPY
--- NOTE | ~2017-02-07 | CR72 ---
[facility] A Service of [facility] & [facility] RADIOLOGY TEXT RESULTS PATIENT: HAZEL MONREAL LOCATION: [address] : [birth year] UNIT #: [id number] AGE: [address]: Nathaly Martinez MD SEX: F ORDER DR: [id number] [facility] [address] [facility]. [place], [place] [address] [id number] MR#: [id number] Acc #: [id number] NAME: HAZEL MONREAL : 1945 SEX: F STUDY DATE/TIME: 02/16/2017 5:01 UNIT: [facility] ROOM: [facility] STUDY DESCRIPTION: CR Chest Single View Portable Attending Physician: Nathaly Martinez M.D. Ordering Physician: Venkat Dash M.D. Primary Care Physician: Luis Lujan M.D. MEDICAL IMAGING REPORT This report is preliminary unless electronic signature is present EXAM Portable chest HISTORY Respiratory failure for 9 days. Followup endotracheal tube DATE: 02/16/17 COMPARISON: 02/15 FINDINGS A portable view of the chest was obtained. The endotracheal tube tip is 3 cm above the ana. Right greater than left bilateral infiltrates are stable. Central venous catheter and Dobbhoff tube are stable. Dictated by... Jarod Fontaine M.D. THIS IS AN ELECTRONICALLY VERIFIED REPORT Jarod Fontaine M.D. at 02/16/2017 8:41 AM AZRA/ruy TD: 02/16/2017 07:20 JOB #: [id number] MEDICAL IMAGING REPORT Page 1 of 1 COPY
--- NOTE | ~2017-02-07 | CO ---
Unit #: [id number] #: [id number] Patient: HAZEL MONREAL [id number] [address] [address] [id number] I MR#: [id number] NAME: HAZEL MONREAL ROOM: [facility] Age: 71 Sex: F Admission Date: 02/07/2017 : 1945 Attending Physician: Nathaly Martinez M.D. Primary Care Physician: Luis Lujan M.D. Consultation Date: 02/08/2017 CONSULTATION REPORT REASON FOR CONSULTATION Hypotension. HISTORY OF PRESENT ILLNESS The patient is a 71-year-old female known to Dr. Lynn. The patient saw Dr. Lynn back in October 2014 for surgical clearance for a right total knee arthroplasty. At that time, she did have a 2-D echocardiogram that showed an ejection fraction of 50 to 55% and abnormal diastolic dysfunction. Additional past medical history includes diabetes type 2, remote history of sleep apnea, hypertension, stress incontinence, GERD, Sjogren syndrome, hypothyroidism and COPD. She also has had a history of PE and a DVT in her right lower extremity. No family is available at bedside for interview and the patient is currently requiring mechanical ventilation. She presented to the ER with complaints of shortness of breath. Her oxygenation was found to be 88% on 100% nonrebreather. Ultimately, the patient was intubated and started on sedation. She has been treated with IV antibiotics. The patient did have some low blood pressure and was started on a Cristóbal and a Levophed drip. She was found to have an elevated CK. Currently, corporate driver and Renal are following. Renal is following for rhabdomyolysis and acute on chronic kidney injury. PAST MEDICAL HISTORY 1. A 2-D echocardiogram in October of 2014 shows an EF of 50 to 55% with diastolic dysfunction. 2. Hypertension. 3. Diabetes type 2. 4. History of DVT and PE. 5. History of obstructive sleep apnea. 6. COPD. 7. Sjogren syndrome. 8. Reflux. 9. Irritable bowel. PAST SURGICAL HISTORY 1. Right total knee arthroplasty. 2. Right total hip arthroplasty. 3. Left total hip arthroplasty. 4. Cholecystectomy. 5. Left knee arthroscopy. 6. Tubal ligation. 7. Bladder repair. 8. Right femur stress fracture with bone graft. Unit #: [id number] #: [id number] Patient: HAZEL MONREAL 9. Appendectomy. SOCIAL HISTORY Per record, there is no history of alcohol or illicit drug abuse. She denies tobacco abuse but was exposed to secondhand smoke at home. FAMILY HISTORY Per previous hospital records, she has a family history of hypertension, coronary artery disease and myocardial infarction. ALLERGIES 1. Cleocin. 2. Penicillin. 3. Sulfa. 4. Erythromycin base. MEDICATIONS Home medicines are currently unavailable at this time. REVIEW OF SYSTEMS A 10-point review of systems was unable to be completed because the patient is requiring mechanical ventilation. PHYSICAL EXAMINATION GENERAL APPEARANCE: The patient is sedated, no acute distress. VITAL SIGNS: Temperature 97.9. Heart rate 102. Respirations 24. Blood pressure 145/90. She is oxygenating 100%. HEENT: Head is atraumatic, normocephalic. Pupils equal, round, reactive, slightly sluggish. No discharge from ears or nares. NECK: Supple. Trachea is midline. Negative for JVD. Normal carotid upstrokes. LUNGS: Scattered rhonchi. CARDIOVASCULAR: S1, S2. Regular rate and rhythm. No murmurs, rubs or gallops are appreciated. ABDOMEN: Soft, nontender, nondistended. Bowel sounds are hypoactive in all four quadrants. EXTREMITIES: No clubbing, edema or cyanosis. NEUROLOGIC: The patient is currently sedated. DIAGNOSTIC STUDIES LABORATORY: WBC 11.4, hemoglobin 10.9, hematocrit 33.7, platelets 208. Sodium 137, potassium 3.8, chloride 109, CO2 14, glucose 124, BUN 60, creatinine 3.7, AST 123, ALT 44, alkaline phosphatase 111. CK 4,380. Albumin 2.5. Blood cultures are currently pending. Urine culture is showing greater than 100,000 gram-negative rods. ASSESSMENT 1. Acute hypoxic respiratory failure requiring mechanical ventilation. 2. Right lower lobe pneumonia. 3. Acute on chronic kidney disease stage 3 with rhabdomyolysis. 4. Metabolic acidosis. 5. Sepsis. 6. Gram-negative christiane UTI. 7. Diabetes. 8. Hypertension now with some hypotension. 9. History of DVT and PE. 10. Obstructive sleep apnea. 11. COPD. Unit #: [id number] #: [id number] Patient: HAZEL MONREAL 12. Nonsmoker. PLAN At this time, we will encourage nursing to continue to wean pressors as tolerated. A 2-D echocardiogram is currently pending. We will check cardiac enzymes q.6 hours x2. We will check a CMP, magnesium, TSH and lipid panel in the morning. Dictated by... Renetta Chou A.P.R.N. for Thiago Negrete M.D. AM/maranda TD: 02/08/2017 08:50 JOB #: [id number] CONSULTATION REPORT Page 1 of 1 X Renetta Chou APRN X CONSULTATION REPORT
--- NOTE | ~2017-02-07 | CR7 ---
[facility] A Service of [facility] & [facility] RADIOLOGY TEXT RESULTS PATIENT: HAZEL MONREAL LOCATION: [place] [address]-13 : [birth year] UNIT #: [id number] AGE: [address]: Nathaly Martinez MD SEX: F ORDER DR: [id number] [facility] [address] [place], [place] [address] [id number] I MR#: [id number] Acc #: [id number] NAME: HAZEL MONREAL : 1945 SEX: F STUDY DATE/TIME: 02/13/2017 10:08 UNIT: [facility] ROOM: [facility] STUDY DESCRIPTION: CR Abdomen Single AP View Attending Physician: Nathaly Martinez M.D. Ordering Physician: Nathaly Martinez M.D. Primary Care Physician: Luis Lujan M.D. MEDICAL IMAGING REPORT This report is preliminary unless electronic signature is present EXAM AP abdomen INDICATIONS Dobbhoff placement. Comparison 02/08/2017. FINDINGS Stable Dobbhoff tube positioning, with projecting over the stomach. IMPRESSION Dobbhoff tube tip projects over the stomach. Dictated by... Quinn Parker M.D. THIS IS AN ELECTRONICALLY VERIFIED REPORT Quinn Parker M.D. at 02/14/2017 2:24 PM ARS/psc TD: 02/13/2017 23:42 JOB #: [id number] MEDICAL IMAGING REPORT Page 1 of 1 COPY
--- NOTE | ~2017-02-07 | CR72 ---
[facility] A Service of [facility] & [facility] RADIOLOGY TEXT RESULTS PATIENT: HAZEL MONREAL LOCATION: [place] [address]13 : [birth year] UNIT #: [id number] AGE: [address]: Nathaly Martinez MD SEX: F ORDER DR: [id number] [facility] [address] [place], [place] [address] [id number] I MR#: [id number] Acc #: [id number] NAME: HAZEL MONREAL : 1945 SEX: F STUDY DATE/TIME: 02/08/2017 5:08 UNIT: [facility] ROOM: [facility] STUDY DESCRIPTION: CR Chest Single View Portable Attending Physician: Nathaly Martinez M.D. Ordering Physician: Lee Wilson M.D. Primary Care Physician: Luis Lujan M.D. MEDICAL IMAGING REPORT This report is preliminary unless electronic signature is present EXAM Portable chest HISTORY Respiratory failure, shortness of air, pneumonia, symptoms since 02/07/2017 COMPARISON 02/07/2017 FINDINGS Portable view of the chest demonstrates endotracheal tube and right neck approach central line in satisfactory position. Increasing airspace disease right lower lobe, right upper lobe, may represent worsening pneumonia. Left lung remains clear. Loss of the right hemidiaphragm most likely related to basilar consolidation and less likely small effusion. Heart, mediastinum unremarkable except for mild aortic atherosclerotic change. No pneumothorax. Dictated by... Chele Parker M.D. THIS IS AN ELECTRONICALLY VERIFIED REPORT Chele Parker M.D. at 02/09/2017 10:35 PM THERON/ruy TD: 02/08/2017 08:01 JOB #: [id number] MEDICAL IMAGING REPORT Page 1 of 1 COPY
--- NOTE | ~2017-02-07 | CR72 ---
[facility] A Service of [facility] & [facility] RADIOLOGY TEXT RESULTS PATIENT: HAZEL MONREAL LOCATION: [place] [address]13 : [birth year] UNIT #: [id number] AGE: [address]: Nathaly Martinez MD SEX: F ORDER DR: [id number] [facility] [address] [facility] [place], [place] [address] [id number] I MR#: [id number] Acc #: [id number] NAME: HAZEL MONREAL : 1945 SEX: F STUDY DATE/TIME: 02/24/2017 3:39 UNIT: [facility] ROOM: [facility] STUDY DESCRIPTION: CR Chest Single View Portable Attending Physician: Nathaly Martinez M.D. Ordering Physician: Stoney Kurtz M.D. Primary Care Physician: Luis Lujan M.D. MEDICAL IMAGING REPORT This report is preliminary unless electronic signature is present EXAM Single view chest INDICATION Respiratory failure. Pneumonia. FINDINGS Single portable AP view of the chest compared to 02/23/2017. Right IJ central line remains in place. Heart mediastinal contours are stable. There is increased interstitial markings in both lungs. No pneumothorax or pleural effusion. IMPRESSION No interval change. Dictated by... Dionisio Harris M.D. THIS IS AN ELECTRONICALLY VERIFIED REPORT Dionisio Harris M.D. at 02/24/2017 4:43 AM MARKY/caro TD: 02/24/2017 04:36 JOB #: [id number] MEDICAL IMAGING REPORT Page 1 of 1 COPY
[2017-02-07 12:04] LABS: URINE SOURCE CLEAN CATCH
[2017-02-07 12:05] LABS: ARTERIAL BLD GAS O2 SATURATION 97.5 % (90.0-100.0); ARTERIAL BLOOD GAS HCO3 15.2 mmol/L; ARTERIAL BLOOD GAS MET HB 1.3 %sat (0.0-2.0); ARTERIAL BLOOD GAS PCO2 47.9 mmHg (35.0-45.0)
[2017-02-07 12:06] LABS: ARTERIAL BLOOD GAS ART SITE LEFT BRACHIAL; ARTERIAL BLOOD GAS DELIVERY VENT; ARTERIAL BLOOD GAS VENT MODE AC; ARTERIAL DRAW? YES
[2017-02-07 12:09] LABS: URINE APPEARANCE TURBID; URINE BILIRUBIN NEG (NEG); URINE BLOOD 2+ (NEG); URINE COLOR YELLOW; URINE GLUCOSE NEG (NEG); URINE KETONE NEG (NEG); URINE LEUKOCYTE ESTERASE 3+ (NEG); URINE NITRATE NEG (NEG); URINE PH 5.5 (5-8); URINE PROTEIN 2+ (NEG); URINE SPECIFIC GRAVITY 1.014 (1.003-1.035); URINE UROBILINOGEN 0.2 MG/DL (NEG)
[2017-02-07 12:15] LABS: CULTURE INDICATED? YES; URINE BACTERIA AUWI 4+ (NEGATIVE); URINE SQUAMOUS EPITHELIAL CELL OCC /[HPF]; UWBCS1 AUWI INNUM (0-5)
[2017-02-07 12:55] LABS: POC - CKMB 26.2 ng/mL (0.0-7.9); POC - TROPONIN <0.05 ng/mL (<=0.05)
[2017-02-07 13:03] LABS: BASOPHIL% 0.1 % (0-2.5); DIFF IND NO; EOSINOPHIL% 0.1 % (0.0-7.0); HEMATOCRIT 36.2 % (35.0-45.0); HEMOGLOBIN 11.5 gm/dL (12.0-16.0); LYMPHOCYTE# 0.5 X10e3 (1.0-3.5); LYMPHOCYTE% 7.8 % (17.0-45.0); MEAN CELL VOLUME 94.8 FL (83-96); MEAN CORPUSCULAR HEMOGLOBIN 30.2 PG (28-34); MEAN CORPUSCULAR HGB CONC 31.8 g/dL (30-36); MEAN PLATELET VOLUME 8.1 FL (6.5-11.5); MONOCYTE# 0.4 X10e3 (0-1.0); MONOCYTE% 5.4 % (3.0-12.0); NEUTROPHIL# 5.7 X10e3 (1.5-7.1); NEUTROPHIL% 86.6 % (40-75); PLATELET COUNT 191 X10e3 (140-420); RED BLOOD COUNT 3.82 X10e (3.90-5.30); RED CELL DISTRIBUTION WIDTH 14.3 % (11.0-15.5); WHITE BLOOD COUNT 6.5 X10e3 (4.0-10.5)
[2017-02-07 13:15] LABS: PARTIAL THROMBOPLASTIN TIME 25.2 SECONDS (23.5-31.3); PROTHROMBIN TIME (PATIENT) 10.3 SECONDS (9.6-11.5)
[2017-02-07 13:34] LABS: ALBUMIN SERUM 3.4 g/dL (3.5-5.0); BILIRUBIN, DIRECT 0.1 mg/dL (0.0-0.2); BILIRUBIN,INDIRECT 0.4 mg/dL (0.0-0.9); BILIRUBIN,TOTAL 0.5 mg/dL (0.2-2.0); BUN/CREATININE RATIO 13.86; CALCIUM SERUM 7.5 mg/dL (8.4-10.2); CREATININE SERUM 4.4 mg/dL (0.6-1.4); GLOM FILT RATE Estimated 9.5 mL/min (>60); PHOSPHOROUS 6.6 mg/dL (2.5-4.6); PROTEIN TOTAL SERUM 6.7 g/dL (6.0-8.3)
[2017-02-07 13:39] LABS: POTASSIUM 5.7 mmol/L (3.5-5.1)
[2017-02-07 15:16] LABS: POC - CKMB 10.1 ng/mL (0.0-7.9); POC - TROPONIN <0.05 ng/mL (<=0.05)
[2017-02-07 16:49] LABS: AMPHETAMINE NEG (NEG); BARBITURATES NEG (NEG); BENZODIAZEPINES POS (NEG); COCAINE NEG (NEG); MARIJUANA NEG (NEG); OPIATES POS (NEG); TRICYCLIC ANTIDEPRESSANTS NEG (NEG); U METHADONE NEG (NEG)
[2017-02-07 18:04] LABS: ARTERIAL BLD GAS O2 SATURATION 96.8 % (90.0-100.0); ARTERIAL BLOOD GAS CARBOXY HB 0.3 %sat (0.0-9.0); ARTERIAL BLOOD GAS HCO3 12.9 mmol/L
[2017-02-07 18:05] LABS: ARTERIAL BLOOD GAS ALLEN TEST NORMAL; ARTERIAL BLOOD GAS ART SITE RIGHT BRACHIAL; ARTERIAL BLOOD GAS PCO2 50.5 mmHg (35.0-45.0); ARTERIAL BLOOD GAS pH 7.015 (7.350-7.450); ARTERIAL DRAW? YES
[2017-02-07 18:06] LABS: ARTERIAL BLOOD GAS DELIVERY VENT; ARTERIAL BLOOD GAS VENT MODE AC
[2017-02-07 18:20] LABS: BUN/CREATININE RATIO 15.13; CALCIUM SERUM 6.8 mg/dL (8.4-10.2); CREATININE SERUM 3.7 mg/dL (0.6-1.4); GLOM FILT RATE Estimated 11.7 mL/min (>60); POTASSIUM 4.7 mmol/L (3.5-5.1)
[2017-02-07 20:23] LABS: ARTERIAL BLD GAS O2 SATURATION 91.1 % (90.0-100.0); ARTERIAL BLOOD GAS CARBOXY HB 0.4 %sat (0.0-9.0); ARTERIAL BLOOD GAS HCO3 14.5 mmol/L; ARTERIAL BLOOD GAS MET HB 0.9 %sat (0.0-2.0); ARTERIAL BLOOD GAS PCO2 37.5 mmHg (35.0-45.0)
[2017-02-07 20:26] LABS: ARTERIAL BLOOD GAS ART SITE RIGHT BRACHIAL; ARTERIAL BLOOD GAS DELIVERY VENT; ARTERIAL BLOOD GAS PO2 59.9 mmHg (80.0-100); ARTERIAL BLOOD GAS VENT MODE AC; ARTERIAL BLOOD GAS pH 7.195 (7.350-7.450); ARTERIAL DRAW? YES
[2017-02-08 06:00] LABS: BASOPHIL% 0.1 % (0-2.5); HEMATOCRIT 33.7 % (35.0-45.0); HEMOGLOBIN 10.9 gm/dL (12.0-16.0); LYMPHOCYTE# 0.4 X10e3 (1.0-3.5); LYMPHOCYTE% 3.9 % (17.0-45.0); MEAN CORPUSCULAR HEMOGLOBIN 29.6 PG (28-34); MEAN CORPUSCULAR HGB CONC 32.5 g/dL (30-36); MEAN PLATELET VOLUME 8.3 FL (6.5-11.5); MONOCYTE# 0.5 X10e3 (0-1.0); MONOCYTE% 4.4 % (3.0-12.0); NEUTROPHIL# 10.4 X10e3 (1.5-7.1); NEUTROPHIL% 91.6 % (40-75); PLATELET COUNT 208 X10e3 (140-420); RED BLOOD COUNT 3.69 X10e (3.90-5.30); RED CELL DISTRIBUTION WIDTH 14.2 % (11.0-15.5)
[2017-02-08 06:25] LABS: DIFF IND NO; MEAN CELL VOLUME 91.1 FL (83-96); WHITE BLOOD COUNT 11.4 X10e3 (4.0-10.5)
[2017-02-08 07:03] LABS: ARTERIAL BLD GAS O2 SATURATION 98.8 % (90.0-100.0); ARTERIAL BLOOD GAS HCO3 14.2 mmol/L; ARTERIAL BLOOD GAS PCO2 28.8 mmHg (35.0-45.0); ARTERIAL BLOOD GAS pH 7.302 (7.350-7.450)
[2017-02-08 07:05] LABS: ARTERIAL BLOOD GAS ALLEN TEST NORMAL; ARTERIAL BLOOD GAS ART SITE LEFT BRACHIAL; ARTERIAL BLOOD GAS DELIVERY VENT; ARTERIAL BLOOD GAS VENT MODE AC; ARTERIAL DRAW? YES
[2017-02-08 07:22] LABS: ALBUMIN SERUM 2.5 g/dL (3.5-5.0); BILIRUBIN,TOTAL 0.9 mg/dL (0.2-2.0); BUN/CREATININE RATIO 16.21; CALCIUM SERUM 6.8 mg/dL (8.4-10.2); CREATININE SERUM 3.7 mg/dL (0.6-1.4); GLOM FILT RATE Estimated 11.7 mL/min (>60); POTASSIUM 3.8 mmol/L (3.5-5.1); PROTEIN TOTAL SERUM 5.2 g/dL (6.0-8.3)
[2017-02-08 15:48] LABS: BUN/CREATININE RATIO 18.18; CALCIUM SERUM 6.4 mg/dL (8.4-10.2); CREATININE SERUM 3.3 mg/dL (0.6-1.4); GLOM FILT RATE Estimated 13.5 mL/min (>60)
[2017-02-09 03:49] LABS: BASOPHIL% 0.2 % (0-2.5); HEMATOCRIT 26.4 % (35.0-45.0); LYMPHOCYTE# 0.5 X10e3 (1.0-3.5); LYMPHOCYTE% 2.8 % (17.0-45.0); MEAN CELL VOLUME 90.2 FL (83-96); MEAN CORPUSCULAR HEMOGLOBIN 29.6 PG (28-34); MEAN CORPUSCULAR HGB CONC 32.8 g/dL (30-36); MEAN PLATELET VOLUME 8.3 FL (6.5-11.5); MONOCYTE# 0.3 X10e3 (0-1.0); NEUTROPHIL# 15.8 X10e3 (1.5-7.1); PLATELET COUNT 144 X10e3 (140-420); RED BLOOD COUNT 2.93 X10e (3.90-5.30); RED CELL DISTRIBUTION WIDTH 14.6 % (11.0-15.5); WHITE BLOOD COUNT 16.6 X10e3 (4.0-10.5)
[2017-02-09 03:50] LABS: DIFF IND YES; HEMOGLOBIN 8.7 gm/dL (12.0-16.0)
[2017-02-09 04:06] LABS: ARTERIAL BLD GAS O2 SATURATION 96.9 % (90.0-100.0); ARTERIAL BLOOD GAS CARBOXY HB 0.4 %sat (0.0-9.0); ARTERIAL BLOOD GAS HCO3 20.9 mmol/L; ARTERIAL BLOOD GAS PCO2 26.6 mmHg (35.0-45.0); ARTERIAL BLOOD GAS PO2 85.8 mmHg (80.0-100); ARTERIAL BLOOD GAS pH 7.504 (7.350-7.450)
[2017-02-09 04:19] LABS: ARTERIAL BLOOD GAS ART SITE LEFT BRACHIAL; ARTERIAL BLOOD GAS DELIVERY VENT; ARTERIAL BLOOD GAS VENT MODE AC; ARTERIAL DRAW? YES
[2017-02-09 05:01] LABS: NUCLEATED RED BLOOD CELL 1 /100 (0); PLATELET ESTIMATE NORMAL (NORMAL)
[2017-02-09 05:05] LABS: HYPOCHROMIA SL; POIKILOCYTOSIS SL
[2017-02-09 06:22] LABS: FERRITIN 178 ng/mL (11-307)
[2017-02-09 07:19] LABS: ALBUMIN SERUM 1.8 g/dL (3.5-5.0); BILIRUBIN,TOTAL 0.6 mg/dL (0.2-2.0); BUN/CREATININE RATIO 20.34; CALCIUM SERUM 6.3 mg/dL (8.4-10.2); CREATININE SERUM 2.9 mg/dL (0.6-1.4); GLOM FILT RATE Estimated 15.7 mL/min (>60); MAGNESIUM 1.3 mg/dL (1.6-3.0); POTASSIUM 3.3 mmol/L (3.5-5.1); PROTEIN TOTAL SERUM 4.1 g/dL (6.0-8.3)
[2017-02-09 10:47] LABS: EOSINOPHIL% 0.1 % (0.0-7.0); HEMATOCRIT 25.5 % (35.0-45.0); HEMOGLOBIN 8.5 gm/dL (12.0-16.0); LYMPHOCYTE# 0.6 X10e3 (1.0-3.5); LYMPHOCYTE% 3.6 % (17.0-45.0); MEAN CORPUSCULAR HEMOGLOBIN 29.8 PG (28-34); MEAN CORPUSCULAR HGB CONC 33.2 g/dL (30-36); MEAN PLATELET VOLUME 8.4 FL (6.5-11.5); MONOCYTE# 0.3 X10e3 (0-1.0); MONOCYTE% 1.8 % (3.0-12.0); NEUTROPHIL# 15.6 X10e3 (1.5-7.1); NEUTROPHIL% 94.5 % (40-75); PLATELET COUNT 136 X10e3 (140-420); RED BLOOD COUNT 2.84 X10e (3.90-5.30); RED CELL DISTRIBUTION WIDTH 14.7 % (11.0-15.5); WHITE BLOOD COUNT 16.6 X10e3 (4.0-10.5)
[2017-02-09 10:48] LABS: DIFF IND NO
[2017-02-09 16:16] LABS: BASOPHIL% 0.1 % (0-2.5); HEMATOCRIT 24.1 % (35.0-45.0); LYMPHOCYTE# 0.5 X10e3 (1.0-3.5); LYMPHOCYTE% 2.8 % (17.0-45.0); MEAN CELL VOLUME 90.4 FL (83-96); MEAN CORPUSCULAR HEMOGLOBIN 29.8 PG (28-34); MEAN PLATELET VOLUME 8.4 FL (6.5-11.5); MONOCYTE# 0.4 X10e3 (0-1.0); MONOCYTE% 2.3 % (3.0-12.0); NEUTROPHIL# 16.2 X10e3 (1.5-7.1); NEUTROPHIL% 94.8 % (40-75); PLATELET COUNT 124 X10e3 (140-420); RED BLOOD COUNT 2.67 X10e (3.90-5.30); RED CELL DISTRIBUTION WIDTH 14.8 % (11.0-15.5); WHITE BLOOD COUNT 17.1 X10e3 (4.0-10.5)
[2017-02-09 16:19] LABS: DIFF IND NO
[2017-02-09 21:31] LABS: HEMATOCRIT 25.3 % (35.0-45.0); HEMOGLOBIN 8.3 gm/dL (12.0-16.0)
[2017-02-10 04:08] LABS: ARTERIAL BLD GAS O2 SATURATION 97.5 % (90.0-100.0); ARTERIAL BLOOD GAS ART SITE RIGHT BRACHIAL; ARTERIAL BLOOD GAS CARBOXY HB 0.6 %sat (0.0-9.0); ARTERIAL BLOOD GAS DELIVERY VENT; ARTERIAL BLOOD GAS MET HB 0.9 %sat (0.0-2.0); ARTERIAL BLOOD GAS VENT MODE AC; ARTERIAL BLOOD GAS pH 7.446 (7.350-7.450); ARTERIAL DRAW? YES
[2017-02-10 05:19] LABS: HEMATOCRIT 24.8 % (35.0-45.0); HEMOGLOBIN 8.1 gm/dL (12.0-16.0); MEAN CELL VOLUME 90.4 FL (83-96); MEAN CORPUSCULAR HEMOGLOBIN 29.6 PG (28-34); MEAN CORPUSCULAR HGB CONC 32.8 g/dL (30-36); MEAN PLATELET VOLUME 8.2 FL (6.5-11.5); RED BLOOD COUNT 2.74 X10e (3.90-5.30); RED CELL DISTRIBUTION WIDTH 14.9 % (11.0-15.5); WHITE BLOOD COUNT 18.1 X10e3 (4.0-10.5)
[2017-02-10 06:07] LABS: ALBUMIN SERUM 1.9 g/dL (3.5-5.0); BILIRUBIN,TOTAL 0.6 mg/dL (0.2-2.0); BUN/CREATININE RATIO 26.5; CALCIUM SERUM 6.9 mg/dL (8.4-10.2); GLOM FILT RATE Estimated 24.7 mL/min (>60); MAGNESIUM 1.7 mg/dL (1.6-3.0); POTASSIUM 3.5 mmol/L (3.5-5.1); PROTEIN TOTAL SERUM 4.7 g/dL (6.0-8.3)
[2017-02-11 06:08] LABS: BASOPHIL% 0.2 % (0-2.5); HEMATOCRIT 25.9 % (35.0-45.0); HEMOGLOBIN 8.4 gm/dL (12.0-16.0); LYMPHOCYTE# 1.2 X10e3 (1.0-3.5); LYMPHOCYTE% 4.8 % (17.0-45.0); MEAN CELL VOLUME 91.7 FL (83-96); MEAN CORPUSCULAR HEMOGLOBIN 29.7 PG (28-34); MEAN CORPUSCULAR HGB CONC 32.4 g/dL (30-36); MEAN PLATELET VOLUME 8.5 FL (6.5-11.5); MONOCYTE# 1.4 X10e3 (0-1.0); MONOCYTE% 5.7 % (3.0-12.0); NEUTROPHIL# 22.4 X10e3 (1.5-7.1); NEUTROPHIL% 89.3 % (40-75); PLATELET COUNT 133 X10e3 (140-420); RED BLOOD COUNT 2.83 X10e (3.90-5.30); WHITE BLOOD COUNT 25.1 X10e3 (4.0-10.5)
[2017-02-11 06:15] LABS: DIFF IND NO
[2017-02-11 06:37] LABS: ALBUMIN SERUM 2.2 g/dL (3.5-5.0); BILIRUBIN,TOTAL 0.5 mg/dL (0.2-2.0); CALCIUM SERUM 7.5 mg/dL (8.4-10.2); CREATININE SERUM 1.7 mg/dL (0.6-1.4); MAGNESIUM 2.3 mg/dL (1.6-3.0); POTASSIUM 3.5 mmol/L (3.5-5.1); PROTEIN TOTAL SERUM 5.1 g/dL (6.0-8.3)
[2017-02-11 10:11] LABS: ARTERIAL BLD GAS O2 SATURATION 95.4 % (90.0-100.0); ARTERIAL BLOOD GAS CARBOXY HB 0.4 %sat (0.0-9.0); ARTERIAL BLOOD GAS HCO3 19.2 mmol/L; ARTERIAL BLOOD GAS MET HB 1.2 %sat (0.0-2.0); ARTERIAL BLOOD GAS PO2 85.2 mmHg (80.0-100); ARTERIAL BLOOD GAS pH 7.347 (7.350-7.450)
[2017-02-11 10:12] LABS: ARTERIAL BLOOD GAS ART SITE RIGHT BRACHIAL; ARTERIAL BLOOD GAS DELIVERY VENT; ARTERIAL BLOOD GAS VENT MODE AC; ARTERIAL DRAW? YES
[2017-02-11 14:26] LABS: URINE APPEARANCE CLEAR; URINE BILIRUBIN NEG (NEG); URINE BLOOD 1+ (NEG); URINE COLOR YELLOW; URINE GLUCOSE NEG (NEG); URINE KETONE NEG (NEG); URINE LEUKOCYTE ESTERASE NEG (NEG); URINE NITRATE NEG (NEG); URINE PROTEIN TRACE (NEG); URINE UROBILINOGEN 0.2 MG/DL (NEG)
[2017-02-11 14:29] LABS: URINE BACTERIA AUWI NEG (NEGATIVE); URINE SQUAMOUS EPITHELIAL CELL OCC /[HPF]; UWBCS1 AUWI 0-2 (0-5)
[2017-02-11 14:35] LABS: CULTURE INDICATED? NO
[2017-02-12 03:49] LABS: ARTERIAL BLD GAS O2 SATURATION 97.4 % (90.0-100.0); ARTERIAL BLOOD GAS CARBOXY HB 0.4 %sat (0.0-9.0); ARTERIAL BLOOD GAS MET HB 1.2 %sat (0.0-2.0); ARTERIAL BLOOD GAS PCO2 30.7 mmHg (35.0-45.0)
[2017-02-12 03:55] LABS: ARTERIAL BLOOD GAS ART SITE RIGHT BRACHIAL; ARTERIAL BLOOD GAS DELIVERY VENT; ARTERIAL BLOOD GAS VENT MODE AC; ARTERIAL DRAW? YES
[2017-02-12 05:52] LABS: BASOPHIL% 0.2 % (0-2.5); EOSINOPHIL# 0.2 X10e3 (0-0.7); HEMATOCRIT 26.4 % (35.0-45.0); HEMOGLOBIN 8.5 gm/dL (12.0-16.0); LYMPHOCYTE# 1.4 X10e3 (1.0-3.5); LYMPHOCYTE% 6.2 % (17.0-45.0); MEAN CELL VOLUME 92.9 FL (83-96); MEAN CORPUSCULAR HEMOGLOBIN 29.7 PG (28-34); MEAN PLATELET VOLUME 8.8 FL (6.5-11.5); MONOCYTE# 1.2 X10e3 (0-1.0); MONOCYTE% 5.1 % (3.0-12.0); NEUTROPHIL# 20.5 X10e3 (1.5-7.1); NEUTROPHIL% 87.5 % (40-75); PLATELET COUNT 149 X10e3 (140-420); RED BLOOD COUNT 2.84 X10e (3.90-5.30); RED CELL DISTRIBUTION WIDTH 15.2 % (11.0-15.5); WHITE BLOOD COUNT 23.3 X10e3 (4.0-10.5)
[2017-02-12 05:55] LABS: DIFF IND NO
[2017-02-12 06:28] LABS: ALBUMIN SERUM 2.1 g/dL (3.5-5.0); BILIRUBIN,TOTAL 0.3 mg/dL (0.2-2.0); BUN/CREATININE RATIO 30.62; CALCIUM SERUM 7.6 mg/dL (8.4-10.2); CREATININE SERUM 1.6 mg/dL (0.6-1.4); GLOM FILT RATE Estimated 32.3 mL/min (>60); MAGNESIUM 2.3 mg/dL (1.6-3.0); POTASSIUM 3.1 mmol/L (3.5-5.1); PROTEIN TOTAL SERUM 5.1 g/dL (6.0-8.3)
[2017-02-13 04:01] LABS: ARTERIAL BLD GAS O2 SATURATION 97.8 % (90.0-100.0); ARTERIAL BLOOD GAS CARBOXY HB 0.7 %sat (0.0-9.0); ARTERIAL BLOOD GAS MET HB 0.8 %sat (0.0-2.0); ARTERIAL BLOOD GAS PCO2 30.8 mmHg (35.0-45.0); ARTERIAL BLOOD GAS pH 7.441 (7.350-7.450)
[2017-02-13 05:19] LABS: ARTERIAL BLOOD GAS ART SITE LEFT RADIAL; ARTERIAL BLOOD GAS DELIVERY VENT; ARTERIAL BLOOD GAS VENT MODE AC; ARTERIAL DRAW? YES
[2017-02-13 06:04] LABS: BASOPHIL% 0.1 % (0-2.5); DIFF IND YES; EOSINOPHIL% 0.1 % (0.0-7.0); HEMATOCRIT 23.1 % (35.0-45.0); HEMOGLOBIN 7.5 gm/dL (12.0-16.0); LYMPHOCYTE# 1.4 X10e3 (1.0-3.5); LYMPHOCYTE% 8.5 % (17.0-45.0); MEAN CELL VOLUME 93.3 FL (83-96); MEAN CORPUSCULAR HEMOGLOBIN 30.2 PG (28-34); MEAN CORPUSCULAR HGB CONC 32.3 g/dL (30-36); MEAN PLATELET VOLUME 8.9 FL (6.5-11.5); MONOCYTE# 0.6 X10e3 (0-1.0); MONOCYTE% 3.8 % (3.0-12.0); NEUTROPHIL# 14.3 X10e3 (1.5-7.1); NEUTROPHIL% 87.5 % (40-75); PLATELET COUNT 115 X10e3 (140-420); RED BLOOD COUNT 2.48 X10e (3.90-5.30); RED CELL DISTRIBUTION WIDTH 15.3 % (11.0-15.5); WHITE BLOOD COUNT 16.3 X10e3 (4.0-10.5)
[2017-02-13 06:28] LABS: NUCLEATED RED BLOOD CELL 1 /100 (0); PLATELET ESTIMATE DECREASED (NORMAL)
[2017-02-13 06:29] LABS: ANISOCYTOSIS SL
[2017-02-13 11:08] LABS: ALBUMIN SERUM 2.1 g/dL (3.5-5.0); BILIRUBIN,TOTAL 0.5 mg/dL (0.2-2.0); BUN/CREATININE RATIO 32.5; CALCIUM SERUM 7.5 mg/dL (8.4-10.2); CREATININE SERUM 1.6 mg/dL (0.6-1.4); GLOM FILT RATE Estimated 32.3 mL/min (>60); MAGNESIUM 1.9 mg/dL (1.6-3.0)
[2017-02-13 11:10] LABS: POTASSIUM 2.6 mmol/L (3.5-5.1)
[2017-02-13 12:29] LABS: HEMATOCRIT 25.7 % (35.0-45.0); HEMOGLOBIN 8.3 gm/dL (12.0-16.0); MEAN CELL VOLUME 92.8 FL (83-96); MEAN CORPUSCULAR HEMOGLOBIN 29.9 PG (28-34); MEAN CORPUSCULAR HGB CONC 32.2 g/dL (30-36); MEAN PLATELET VOLUME 7.9 FL (6.5-11.5); RED BLOOD COUNT 2.76 X10e (3.90-5.30); RED CELL DISTRIBUTION WIDTH 15.1 % (11.0-15.5); WHITE BLOOD COUNT 21.5 X10e3 (4.0-10.5)
[2017-02-14 06:19] LABS: BASOPHIL% 0.1 % (0-2.5); EOSINOPHIL% 0.2 % (0.0-7.0); HEMATOCRIT 23.6 % (35.0-45.0); HEMOGLOBIN 7.5 gm/dL (12.0-16.0); LYMPHOCYTE# 1.7 X10e3 (1.0-3.5); LYMPHOCYTE% 9.3 % (17.0-45.0); MEAN CELL VOLUME 93.3 FL (83-96); MEAN CORPUSCULAR HEMOGLOBIN 29.6 PG (28-34); MEAN CORPUSCULAR HGB CONC 31.7 g/dL (30-36); MEAN PLATELET VOLUME 9.2 FL (6.5-11.5); MONOCYTE# 0.9 X10e3 (0-1.0); MONOCYTE% 4.7 % (3.0-12.0); NEUTROPHIL# 15.8 X10e3 (1.5-7.1); NEUTROPHIL% 85.7 % (40-75); PLATELET COUNT 119 X10e3 (140-420); RED BLOOD COUNT 2.53 X10e (3.90-5.30); RED CELL DISTRIBUTION WIDTH 14.9 % (11.0-15.5); WHITE BLOOD COUNT 18.5 X10e3 (4.0-10.5)
[2017-02-14 06:24] LABS: DIFF IND NO
[2017-02-14 06:32] LABS: BILIRUBIN,TOTAL 0.6 mg/dL (0.2-2.0); BUN/CREATININE RATIO 30.58; CALCIUM SERUM 7.4 mg/dL (8.4-10.2); CREATININE SERUM 1.7 mg/dL (0.6-1.4); MAGNESIUM 1.8 mg/dL (1.6-3.0); POTASSIUM 3.2 mmol/L (3.5-5.1); PROTEIN TOTAL SERUM 4.8 g/dL (6.0-8.3)
[2017-02-15 04:37] LABS: ARTERIAL BLD GAS O2 SATURATION 97.4 % (90.0-100.0); ARTERIAL BLOOD GAS CARBOXY HB 0.9 %sat (0.0-9.0); ARTERIAL BLOOD GAS HCO3 25.6 mmol/L; ARTERIAL BLOOD GAS MET HB 0.7 %sat (0.0-2.0); ARTERIAL BLOOD GAS PCO2 31.2 mmHg (35.0-45.0); ARTERIAL BLOOD GAS PO2 99.3 mmHg (80.0-100); ARTERIAL BLOOD GAS pH 7.523 (7.350-7.450)
[2017-02-15 05:05] LABS: ARTERIAL BLOOD GAS ALLEN TEST NORMAL; ARTERIAL BLOOD GAS ART SITE LEFT RADIAL; ARTERIAL BLOOD GAS DELIVERY VENT; ARTERIAL BLOOD GAS VENT MODE AC; ARTERIAL DRAW? YES
[2017-02-15 05:07] LABS: BASOPHIL% 0.1 % (0-2.5); EOSINOPHIL# 0.3 X10e3 (0-0.7); EOSINOPHIL% 1.9 % (0.0-7.0); HEMATOCRIT 22.7 % (35.0-45.0); HEMOGLOBIN 7.4 gm/dL (12.0-16.0); LYMPHOCYTE# 1.9 X10e3 (1.0-3.5); MEAN CELL VOLUME 92.4 FL (83-96); MEAN CORPUSCULAR HEMOGLOBIN 29.9 PG (28-34); MEAN CORPUSCULAR HGB CONC 32.4 g/dL (30-36); MEAN PLATELET VOLUME 8.8 FL (6.5-11.5); MONOCYTE# 0.7 X10e3 (0-1.0); MONOCYTE% 4.4 % (3.0-12.0); NEUTROPHIL# 12.8 X10e3 (1.5-7.1); NEUTROPHIL% 81.6 % (40-75); PLATELET COUNT 106 X10e3 (140-420); RED BLOOD COUNT 2.46 X10e (3.90-5.30); RED CELL DISTRIBUTION WIDTH 14.6 % (11.0-15.5); WHITE BLOOD COUNT 15.7 X10e3 (4.0-10.5)
[2017-02-15 05:08] LABS: DIFF IND NO
[2017-02-15 06:15] LABS: ALBUMIN SERUM 1.9 g/dL (3.5-5.0); BILIRUBIN,TOTAL 0.6 mg/dL (0.2-2.0); BUN/CREATININE RATIO 33.57; CALCIUM SERUM 7.1 mg/dL (8.4-10.2); CREATININE SERUM 1.4 mg/dL (0.6-1.4); MAGNESIUM 1.7 mg/dL (1.6-3.0); PROTEIN TOTAL SERUM 4.5 g/dL (6.0-8.3)
[2017-02-15 06:21] LABS: POTASSIUM 2.8 mmol/L (3.5-5.1)
[2017-02-16 05:11] LABS: ARTERIAL BLD GAS O2 SATURATION 90.2 % (90.0-100.0); ARTERIAL BLOOD GAS MET HB 0.8 %sat (0.0-2.0); ARTERIAL BLOOD GAS pH 7.463 (7.350-7.450)
[2017-02-16 05:23] LABS: ARTERIAL BLOOD GAS ALLEN TEST NORMAL; ARTERIAL BLOOD GAS ART SITE LEFT RADIAL; ARTERIAL BLOOD GAS DELIVERY VENT; ARTERIAL BLOOD GAS PO2 59.3 mmHg (80.0-100); ARTERIAL BLOOD GAS VENT MODE AC; ARTERIAL DRAW? YES
[2017-02-16 05:31] LABS: BASOPHIL% 0.1 % (0-2.5); EOSINOPHIL# 0.2 X10e3 (0-0.7); EOSINOPHIL% 1.5 % (0.0-7.0); HEMATOCRIT 22.9 % (35.0-45.0); HEMOGLOBIN 7.3 gm/dL (12.0-16.0); LYMPHOCYTE# 1.8 X10e3 (1.0-3.5); LYMPHOCYTE% 11.8 % (17.0-45.0); MEAN CELL VOLUME 93.4 FL (83-96); MEAN CORPUSCULAR HEMOGLOBIN 29.7 PG (28-34); MEAN CORPUSCULAR HGB CONC 31.8 g/dL (30-36); MEAN PLATELET VOLUME 9.8 FL (6.5-11.5); MONOCYTE# 0.7 X10e3 (0-1.0); MONOCYTE% 4.7 % (3.0-12.0); NEUTROPHIL# 12.2 X10e3 (1.5-7.1); NEUTROPHIL% 81.9 % (40-75); PLATELET COUNT 132 X10e3 (140-420); RED BLOOD COUNT 2.45 X10e (3.90-5.30); RED CELL DISTRIBUTION WIDTH 15.2 % (11.0-15.5); WHITE BLOOD COUNT 14.9 X10e3 (4.0-10.5)
[2017-02-16 05:33] LABS: DIFF IND YES
[2017-02-16 06:13] LABS: ALKALINE PHOSPHATASE 58 U/L (32-92); ALT (SGPT) 30 U/L (10-40); AST (SGOT) 28 U/L (10-42); BILIRUBIN,TOTAL <0.1 mg/dL (0.2-2.0); BLOOD UREA NITROGEN 40 mg/dL (9-23); BUN/CREATININE RATIO 30.76; CALCIUM SERUM 7.3 mg/dL (8.4-10.2); CARBON DIOXIDE 24 mmol/L (22-31); CHLORIDE 113 mmol/L (100-111); CREATININE SERUM 1.3 mg/dL (0.6-1.4); GLOM FILT RATE Estimated 41.5 mL/min (>60); GLUCOSE FASTING 98 mg/dL (70-110); MAGNESIUM 2.4 mg/dL (1.6-3.0); PHOSPHOROUS 3.3 mg/dL (2.5-4.6); POTASSIUM 3.3 mmol/L (3.5-5.1); PROTEIN TOTAL SERUM 5.2 g/dL (6.0-8.3); SODIUM 143 mmol/L (135-145)
[2017-02-16 06:37] LABS: ANISOCYTOSIS SL; PLATELET ESTIMATE DECREASED (NORMAL); RBC NORMAL YES
[2017-02-16 06:38] LABS: POIKILOCYTOSIS SL; POLYCHROMASIA SL
[2017-02-16 06:39] LABS: OVALOCYTES PRESENT
[2017-02-17 05:50] LABS: BASOPHIL% 0.2 % (0-2.5); EOSINOPHIL# 0.2 X10e3 (0-0.7); EOSINOPHIL% 1.5 % (0.0-7.0); HEMATOCRIT 21.2 % (35.0-45.0); LYMPHOCYTE# 1.4 X10e3 (1.0-3.5); LYMPHOCYTE% 12.7 % (17.0-45.0); MEAN CELL VOLUME 94.1 FL (83-96); MEAN CORPUSCULAR HEMOGLOBIN 30.3 PG (28-34); MEAN CORPUSCULAR HGB CONC 32.1 g/dL (30-36); MEAN PLATELET VOLUME 9.8 FL (6.5-11.5); MONOCYTE# 0.6 X10e3 (0-1.0); MONOCYTE% 5.9 % (3.0-12.0); NEUTROPHIL# 8.8 X10e3 (1.5-7.1); NEUTROPHIL% 79.7 % (40-75); PLATELET COUNT 144 X10e3 (140-420); RED BLOOD COUNT 2.25 X10e (3.90-5.30); RED CELL DISTRIBUTION WIDTH 15.4 % (11.0-15.5)
[2017-02-17 05:53] LABS: DIFF IND NO; HEMOGLOBIN 6.8 gm/dL (12.0-16.0)
[2017-02-17 07:14] LABS: ALBUMIN SERUM 1.9 g/dL (3.5-5.0); BILIRUBIN,TOTAL 0.5 mg/dL (0.2-2.0); BUN/CREATININE RATIO 35.38; CALCIUM SERUM 7.2 mg/dL (8.4-10.2); CREATININE SERUM 1.3 mg/dL (0.6-1.4); GLOM FILT RATE Estimated 41.5 mL/min (>60); MAGNESIUM 2.1 mg/dL (1.6-3.0); POTASSIUM 3.6 mmol/L (3.5-5.1); PROTEIN TOTAL SERUM 4.5 g/dL (6.0-8.3)
[2017-02-17 08:12] LABS: ARTERIAL BLD GAS O2 SATURATION 96.1 % (90.0-100.0); ARTERIAL BLOOD GAS CARBOXY HB 0.8 %sat (0.0-9.0); ARTERIAL BLOOD GAS HCO3 26.7 mmol/L; ARTERIAL BLOOD GAS MET HB 1.2 %sat (0.0-2.0); ARTERIAL BLOOD GAS PCO2 36.3 mmHg (35.0-45.0); ARTERIAL BLOOD GAS PO2 92.3 mmHg (80.0-100); ARTERIAL BLOOD GAS pH 7.475 (7.350-7.450)
[2017-02-17 08:13] LABS: ARTERIAL BLOOD GAS ART SITE LEFT RADIAL; ARTERIAL BLOOD GAS DELIVERY VENT; ARTERIAL BLOOD GAS VENT MODE CPAP; ARTERIAL DRAW? YES
[2017-02-17 10:50] LABS: URINE APPEARANCE CLEAR; URINE BILIRUBIN NEG (NEG); URINE BLOOD NEG (NEG); URINE COLOR YELLOW; URINE GLUCOSE NEG (NEG); URINE KETONE NEG (NEG); URINE LEUKOCYTE ESTERASE NEG (NEG); URINE NITRATE NEG (NEG); URINE PH 6.5 (5-8); URINE PROTEIN TRACE (NEG); URINE SPECIFIC GRAVITY 1.016 (1.003-1.035); URINE UROBILINOGEN 0.2 MG/DL (NEG)
[2017-02-17 10:52] LABS: ARTERIAL BLD GAS O2 SATURATION 97.9 % (90.0-100.0); ARTERIAL BLOOD GAS ART SITE RIGHT RADIAL; ARTERIAL BLOOD GAS CARBOXY HB 0.5 %sat (0.0-9.0); ARTERIAL BLOOD GAS DELIVERY NASAL CANNULA; ARTERIAL BLOOD GAS HCO3 25.9 mmol/L; ARTERIAL BLOOD GAS MET HB 0.6 %sat (0.0-2.0); ARTERIAL BLOOD GAS PCO2 36.5 mmHg (35.0-45.0); ARTERIAL DRAW? YES
[2017-02-17 11:10] LABS: CULTURE INDICATED? NO
[2017-02-17 15:21] LABS: BASOPHIL% 0.1 % (0-2.5); EOSINOPHIL# 0.1 X10e3 (0-0.7); EOSINOPHIL% 0.4 % (0.0-7.0); LYMPHOCYTE# 0.6 X10e3 (1.0-3.5); LYMPHOCYTE% 4.2 % (17.0-45.0); MEAN CELL VOLUME 92.3 FL (83-96); MEAN CORPUSCULAR HEMOGLOBIN 29.4 PG (28-34); MEAN CORPUSCULAR HGB CONC 31.9 g/dL (30-36); MEAN PLATELET VOLUME 9.6 FL (6.5-11.5); MONOCYTE# 0.6 X10e3 (0-1.0); MONOCYTE% 4.6 % (3.0-12.0); NEUTROPHIL% 90.7 % (40-75); PLATELET COUNT 177 X10e3 (140-420); RED BLOOD COUNT 3.15 X10e (3.90-5.30); RED CELL DISTRIBUTION WIDTH 15.4 % (11.0-15.5); WHITE BLOOD COUNT 13.2 X10e3 (4.0-10.5)
[2017-02-17 15:25] LABS: DIFF IND NO; HEMOGLOBIN 9.3 gm/dL (12.0-16.0)
[2017-02-17 21:52] LABS: BUN/CREATININE RATIO 31.42; CALCIUM SERUM 7.7 mg/dL (8.4-10.2); CREATININE SERUM 1.4 mg/dL (0.6-1.4)
[2017-02-17 23:01] LABS: ARTERIAL BLD GAS O2 SATURATION 96.6 % (90.0-100.0); ARTERIAL BLOOD GAS CARBOXY HB 0.8 %sat (0.0-9.0); ARTERIAL BLOOD GAS MET HB 0.8 %sat (0.0-2.0); ARTERIAL BLOOD GAS PCO2 33.2 mmHg (35.0-45.0); ARTERIAL BLOOD GAS PO2 88.6 mmHg (80.0-100); ARTERIAL BLOOD GAS pH 7.503 (7.350-7.450)
[2017-02-17 23:02] LABS: ARTERIAL BLOOD GAS ALLEN TEST NORMAL; ARTERIAL BLOOD GAS ART SITE RIGHT RADIAL; ARTERIAL BLOOD GAS DELIVERY BIPAP 16/8; ARTERIAL DRAW? YES
[2017-02-18 04:18] LABS: BASOPHIL% 0.1 % (0-2.5); EOSINOPHIL# 0.2 X10e3 (0-0.7); EOSINOPHIL% 1.3 % (0.0-7.0); HEMATOCRIT 28.7 % (35.0-45.0); HEMOGLOBIN 9.2 gm/dL (12.0-16.0); LYMPHOCYTE# 1.2 X10e3 (1.0-3.5); LYMPHOCYTE% 10.3 % (17.0-45.0); MEAN CELL VOLUME 91.9 FL (83-96); MEAN CORPUSCULAR HEMOGLOBIN 29.5 PG (28-34); MEAN CORPUSCULAR HGB CONC 32.1 g/dL (30-36); MEAN PLATELET VOLUME 9.4 FL (6.5-11.5); MONOCYTE# 0.8 X10e3 (0-1.0); MONOCYTE% 6.6 % (3.0-12.0); NEUTROPHIL# 9.8 X10e3 (1.5-7.1); NEUTROPHIL% 81.7 % (40-75); PLATELET COUNT 205 X10e3 (140-420); RED BLOOD COUNT 3.12 X10e (3.90-5.30); RED CELL DISTRIBUTION WIDTH 15.3 % (11.0-15.5)
[2017-02-18 04:20] LABS: DIFF IND NO
[2017-02-18 04:46] LABS: ALBUMIN SERUM 2.6 g/dL (3.5-5.0); BILIRUBIN,TOTAL 0.4 mg/dL (0.2-2.0); BUN/CREATININE RATIO 33.84; CALCIUM SERUM 7.7 mg/dL (8.4-10.2); CREATININE SERUM 1.3 mg/dL (0.6-1.4); GLOM FILT RATE Estimated 41.5 mL/min (>60); POTASSIUM 3.3 mmol/L (3.5-5.1)
[2017-02-18 07:50] LABS: ARTERIAL BLD GAS O2 SATURATION 95.2 % (90.0-100.0); ARTERIAL BLOOD GAS CARBOXY HB 0.6 %sat (0.0-9.0); ARTERIAL BLOOD GAS MET HB 0.9 %sat (0.0-2.0); ARTERIAL BLOOD GAS pH 7.252 (7.350-7.450)
[2017-02-18 07:52] LABS: ARTERIAL BLOOD GAS ALLEN TEST NORMAL; ARTERIAL BLOOD GAS ART SITE LEFT RADIAL; ARTERIAL BLOOD GAS DELIVERY BIPAP; ARTERIAL BLOOD GAS PCO2 65.8 mmHg (35.0-45.0); ARTERIAL DRAW? YES
[2017-02-18 09:25] LABS: ARTERIAL BLD GAS O2 SATURATION 99.1 % (90.0-100.0); ARTERIAL BLOOD GAS CARBOXY HB 0.4 %sat (0.0-9.0); ARTERIAL BLOOD GAS HCO3 26.8 mmol/L; ARTERIAL BLOOD GAS MET HB 0.7 %sat (0.0-2.0); ARTERIAL BLOOD GAS PCO2 42.7 mmHg (35.0-45.0); ARTERIAL BLOOD GAS pH 7.407 (7.350-7.450)
[2017-02-18 09:28] LABS: ARTERIAL BLOOD GAS ALLEN TEST NORMAL; ARTERIAL BLOOD GAS ART SITE LEFT RADIAL; ARTERIAL BLOOD GAS DELIVERY VENT; ARTERIAL BLOOD GAS VENT MODE AC; ARTERIAL DRAW? YES
[2017-02-19 03:41] LABS: ARTERIAL BLD GAS O2 SATURATION 98.8 % (90.0-100.0); ARTERIAL BLOOD GAS CARBOXY HB 0.3 %sat (0.0-9.0); ARTERIAL BLOOD GAS HCO3 27.3 mmol/L; ARTERIAL BLOOD GAS MET HB 0.8 %sat (0.0-2.0); ARTERIAL BLOOD GAS PCO2 36.8 mmHg (35.0-45.0); ARTERIAL BLOOD GAS pH 7.478 (7.350-7.450)
[2017-02-19 03:45] LABS: ARTERIAL BLOOD GAS ALLEN TEST NORMAL; ARTERIAL BLOOD GAS ART SITE RIGHT RADIAL; ARTERIAL DRAW? YES
[2017-02-19 03:46] LABS: ARTERIAL BLOOD GAS DELIVERY VENT; ARTERIAL BLOOD GAS VENT MODE A/C
[2017-02-19 06:01] LABS: BASOPHIL% 0.3 % (0-2.5); EOSINOPHIL# 0.1 X10e3 (0-0.7); EOSINOPHIL% 1.1 % (0.0-7.0); HEMATOCRIT 27.3 % (35.0-45.0); HEMOGLOBIN 8.8 gm/dL (12.0-16.0); LYMPHOCYTE# 1.2 X10e3 (1.0-3.5); LYMPHOCYTE% 11.8 % (17.0-45.0); MEAN CELL VOLUME 93.6 FL (83-96); MEAN CORPUSCULAR HEMOGLOBIN 30.1 PG (28-34); MEAN CORPUSCULAR HGB CONC 32.2 g/dL (30-36); MEAN PLATELET VOLUME 9.3 FL (6.5-11.5); MONOCYTE# 0.9 X10e3 (0-1.0); MONOCYTE% 8.8 % (3.0-12.0); PLATELET COUNT 242 X10e3 (140-420); RED BLOOD COUNT 2.91 X10e (3.90-5.30); RED CELL DISTRIBUTION WIDTH 15.9 % (11.0-15.5); WHITE BLOOD COUNT 10.2 X10e3 (4.0-10.5)
[2017-02-19 06:03] LABS: DIFF IND NO
[2017-02-19 06:19] LABS: ALBUMIN SERUM 2.3 g/dL (3.5-5.0); BILIRUBIN,TOTAL 0.6 mg/dL (0.2-2.0); BUN/CREATININE RATIO 28.33; CALCIUM SERUM 7.5 mg/dL (8.4-10.2); CREATININE SERUM 1.2 mg/dL (0.6-1.4); GLOM FILT RATE Estimated 45.8 mL/min (>60); POTASSIUM 3.9 mmol/L (3.5-5.1); PROTEIN TOTAL SERUM 5.4 g/dL (6.0-8.3)
[2017-02-20 03:52] LABS: ARTERIAL BLOOD GAS CARBOXY HB 0.6 %sat (0.0-9.0); ARTERIAL BLOOD GAS HCO3 26.5 mmol/L; ARTERIAL BLOOD GAS MET HB 0.5 %sat (0.0-2.0); ARTERIAL BLOOD GAS PCO2 43.9 mmHg (35.0-45.0)
[2017-02-20 04:03] LABS: ARTERIAL BLOOD GAS ALLEN TEST NORMAL; ARTERIAL BLOOD GAS ART SITE RIGHT RADIAL; ARTERIAL BLOOD GAS DELIVERY VENT; ARTERIAL BLOOD GAS VENT MODE A/C; ARTERIAL DRAW? YES
[2017-02-20 04:38] LABS: BASOPHIL# 0.1 X10e3 (0-0.3); BASOPHIL% 0.7 % (0-2.5); EOSINOPHIL# 0.1 X10e3 (0-0.7); EOSINOPHIL% 1.6 % (0.0-7.0); HEMATOCRIT 24.6 % (35.0-45.0); HEMOGLOBIN 7.9 gm/dL (12.0-16.0); LYMPHOCYTE# 1.6 X10e3 (1.0-3.5); MEAN CELL VOLUME 94.4 FL (83-96); MEAN CORPUSCULAR HEMOGLOBIN 30.1 PG (28-34); MEAN CORPUSCULAR HGB CONC 31.9 g/dL (30-36); MEAN PLATELET VOLUME 9.1 FL (6.5-11.5); MONOCYTE# 0.8 X10e3 (0-1.0); MONOCYTE% 10.1 % (3.0-12.0); NEUTROPHIL% 66.6 % (40-75); PLATELET COUNT 213 X10e3 (140-420); RED BLOOD COUNT 2.61 X10e (3.90-5.30); RED CELL DISTRIBUTION WIDTH 15.9 % (11.0-15.5); WHITE BLOOD COUNT 7.4 X10e3 (4.0-10.5)
[2017-02-20 04:40] LABS: DIFF IND YES
[2017-02-20 04:58] LABS: ALBUMIN SERUM 2.3 g/dL (3.5-5.0); BILIRUBIN,TOTAL 0.7 mg/dL (0.2-2.0); BUN/CREATININE RATIO 30.83; CALCIUM SERUM 7.5 mg/dL (8.4-10.2); CREATININE SERUM 1.2 mg/dL (0.6-1.4); GLOM FILT RATE Estimated 45.8 mL/min (>60); MAGNESIUM 2.1 mg/dL (1.6-3.0); PHOSPHOROUS 3.7 mg/dL (2.5-4.6); POTASSIUM 3.4 mmol/L (3.5-5.1); PROTEIN TOTAL SERUM 5.1 g/dL (6.0-8.3)
[2017-02-20 05:05] LABS: ANISOCYTOSIS MOD; OVALOCYTES PRESENT; PLATELET ESTIMATE NORMAL (NORMAL)
[2017-02-20 18:31] LABS: HEMATOCRIT 24.4 % (35.0-45.0); HEMOGLOBIN 7.7 gm/dL (12.0-16.0)
[2017-02-21 03:56] LABS: ARTERIAL BLD GAS O2 SATURATION 97.4 % (90.0-100.0); ARTERIAL BLOOD GAS CARBOXY HB 0.7 %sat (0.0-9.0); ARTERIAL BLOOD GAS HCO3 26.6 mmol/L; ARTERIAL BLOOD GAS MET HB 1.2 %sat (0.0-2.0); ARTERIAL BLOOD GAS PCO2 39.7 mmHg (35.0-45.0); ARTERIAL BLOOD GAS pH 7.435 (7.350-7.450)
[2017-02-21 04:02] LABS: ARTERIAL BLOOD GAS ALLEN TEST NORMAL; ARTERIAL BLOOD GAS ART SITE RIGHT RADIAL; ARTERIAL BLOOD GAS DELIVERY VENT; ARTERIAL BLOOD GAS VENT MODE A/C; ARTERIAL DRAW? YES
[2017-02-21 05:32] LABS: BASOPHIL% 0.7 % (0-2.5); EOSINOPHIL# 0.2 X10e3 (0-0.7); EOSINOPHIL% 3.1 % (0.0-7.0); HEMATOCRIT 24.1 % (35.0-45.0); HEMOGLOBIN 7.7 gm/dL (12.0-16.0); LYMPHOCYTE# 1.8 X10e3 (1.0-3.5); LYMPHOCYTE% 27.5 % (17.0-45.0); MEAN CELL VOLUME 93.2 FL (83-96); MEAN CORPUSCULAR HEMOGLOBIN 29.7 PG (28-34); MEAN CORPUSCULAR HGB CONC 31.8 g/dL (30-36); MEAN PLATELET VOLUME 8.9 FL (6.5-11.5); MONOCYTE# 0.6 X10e3 (0-1.0); MONOCYTE% 9.5 % (3.0-12.0); NEUTROPHIL# 3.8 X10e3 (1.5-7.1); NEUTROPHIL% 59.2 % (40-75); PLATELET COUNT 251 X10e3 (140-420); RED BLOOD COUNT 2.58 X10e (3.90-5.30); RED CELL DISTRIBUTION WIDTH 15.3 % (11.0-15.5); WHITE BLOOD COUNT 6.5 X10e3 (4.0-10.5)
[2017-02-21 05:42] LABS: DIFF IND NO
[2017-02-21 06:50] LABS: BUN/CREATININE RATIO 32.5; CALCIUM SERUM 7.7 mg/dL (8.4-10.2); CREATININE SERUM 1.2 mg/dL (0.6-1.4); GLOM FILT RATE Estimated 45.8 mL/min (>60); MAGNESIUM 1.9 mg/dL (1.6-3.0); PHOSPHOROUS 3.7 mg/dL (2.5-4.6); POTASSIUM 3.4 mmol/L (3.5-5.1)
[2017-02-21 11:54] LABS: ARTERIAL BLD GAS O2 SATURATION 97.5 % (90.0-100.0); ARTERIAL BLOOD GAS CARBOXY HB 0.6 %sat (0.0-9.0); ARTERIAL BLOOD GAS HCO3 28.6 mmol/L; ARTERIAL BLOOD GAS MET HB 1.2 %sat (0.0-2.0); ARTERIAL BLOOD GAS PCO2 39.2 mmHg (35.0-45.0); ARTERIAL BLOOD GAS pH 7.472 (7.350-7.450)
[2017-02-21 11:55] LABS: ARTERIAL BLOOD GAS ALLEN TEST NORMAL; ARTERIAL BLOOD GAS ART SITE RIGHT RADIAL; ARTERIAL BLOOD GAS DELIVERY VENT; ARTERIAL BLOOD GAS VENT MODE CPAP; ARTERIAL DRAW? YES
[2017-02-22 05:14] LABS: BASOPHIL% 0.6 % (0-2.5); EOSINOPHIL# 0.1 X10e3 (0-0.7); EOSINOPHIL% 1.8 % (0.0-7.0); HEMOGLOBIN 7.8 gm/dL (12.0-16.0); LYMPHOCYTE# 1.5 X10e3 (1.0-3.5); LYMPHOCYTE% 27.7 % (17.0-45.0); MEAN CORPUSCULAR HGB CONC 32.6 g/dL (30-36); MEAN PLATELET VOLUME 8.7 FL (6.5-11.5); MONOCYTE# 0.5 X10e3 (0-1.0); MONOCYTE% 9.6 % (3.0-12.0); NEUTROPHIL# 3.4 X10e3 (1.5-7.1); NEUTROPHIL% 60.3 % (40-75); PLATELET COUNT 274 X10e3 (140-420); RED BLOOD COUNT 2.61 X10e (3.90-5.30); RED CELL DISTRIBUTION WIDTH 15.2 % (11.0-15.5); WHITE BLOOD COUNT 5.6 X10e3 (4.0-10.5)
[2017-02-22 05:15] LABS: DIFF IND NO
[2017-02-22 06:53] LABS: ALBUMIN SERUM 2.4 g/dL (3.5-5.0); BILIRUBIN,TOTAL 0.4 mg/dL (0.2-2.0); BUN/CREATININE RATIO 30.83; CALCIUM SERUM 7.7 mg/dL (8.4-10.2); CREATININE SERUM 1.2 mg/dL (0.6-1.4); GLOM FILT RATE Estimated 45.8 mL/min (>60); MAGNESIUM 2.2 mg/dL (1.6-3.0); POTASSIUM 3.4 mmol/L (3.5-5.1); PROTEIN TOTAL SERUM 5.6 g/dL (6.0-8.3)
[2017-02-22 08:03] LABS: ARTERIAL BLD GAS O2 SATURATION 97.6 % (90.0-100.0); ARTERIAL BLOOD GAS CARBOXY HB 0.9 %sat (0.0-9.0); ARTERIAL BLOOD GAS HCO3 30.1 mmol/L; ARTERIAL BLOOD GAS PCO2 41.2 mmHg (35.0-45.0); ARTERIAL BLOOD GAS pH 7.472 (7.350-7.450)
[2017-02-22 08:04] LABS: ARTERIAL BLOOD GAS ART SITE RIGHT RADIAL; ARTERIAL BLOOD GAS DELIVERY VENT; ARTERIAL BLOOD GAS VENT MODE CPAP; ARTERIAL DRAW? YES
[2017-02-23 04:40] LABS: ARTERIAL BLD GAS O2 SATURATION 97.5 % (90.0-100.0); ARTERIAL BLOOD GAS CARBOXY HB 0.7 %sat (0.0-9.0); ARTERIAL BLOOD GAS HCO3 30.8 mmol/L; ARTERIAL BLOOD GAS MET HB 1.2 %sat (0.0-2.0); ARTERIAL BLOOD GAS PCO2 36.7 mmHg (35.0-45.0); ARTERIAL BLOOD GAS pH 7.533 (7.350-7.450)
[2017-02-23 04:55] LABS: ARTERIAL BLOOD GAS ALLEN TEST NORMAL; ARTERIAL DRAW? YES
[2017-02-23 04:56] LABS: ARTERIAL BLOOD GAS ART SITE LEFT RADIAL; ARTERIAL BLOOD GAS DELIVERY VENT; ARTERIAL BLOOD GAS VENT MODE AC
[2017-02-23 05:31] LABS: BASOPHIL# 0.1 X10e3 (0-0.3); BASOPHIL% 0.9 % (0-2.5); EOSINOPHIL# 0.1 X10e3 (0-0.7); EOSINOPHIL% 2.2 % (0.0-7.0); HEMATOCRIT 25.8 % (35.0-45.0); HEMOGLOBIN 8.3 gm/dL (12.0-16.0); LYMPHOCYTE# 1.9 X10e3 (1.0-3.5); MEAN CELL VOLUME 93.4 FL (83-96); MEAN CORPUSCULAR HEMOGLOBIN 29.9 PG (28-34); MEAN PLATELET VOLUME 8.9 FL (6.5-11.5); MONOCYTE# 0.6 X10e3 (0-1.0); MONOCYTE% 9.7 % (3.0-12.0); NEUTROPHIL# 3.3 X10e3 (1.5-7.1); NEUTROPHIL% 55.2 % (40-75); PLATELET COUNT 286 X10e3 (140-420); RED BLOOD COUNT 2.76 X10e (3.90-5.30); RED CELL DISTRIBUTION WIDTH 15.3 % (11.0-15.5); WHITE BLOOD COUNT 5.9 X10e3 (4.0-10.5)
[2017-02-23 05:38] LABS: DIFF IND YES
[2017-02-23 05:40] LABS: ALBUMIN SERUM 2.6 g/dL (3.5-5.0); BILIRUBIN,TOTAL 0.4 mg/dL (0.2-2.0); BUN/CREATININE RATIO 33.33; CREATININE SERUM 1.2 mg/dL (0.6-1.4); GLOM FILT RATE Estimated 45.8 mL/min (>60); POTASSIUM 3.4 mmol/L (3.5-5.1); PROTEIN TOTAL SERUM 5.7 g/dL (6.0-8.3)
[2017-02-23 06:18] LABS: PLATELET ESTIMATE NORMAL (NORMAL)
[2017-02-23 06:19] LABS: ANISOCYTOSIS SL; HYPOCHROMIA SL; ROULEAUX SLIGHT; STOMATOCYTE PRESENT; TEAR DROP CELLS PRESENT
[2017-02-24 04:06] LABS: ARTERIAL BLD GAS O2 SATURATION 98.3 % (90.0-100.0); ARTERIAL BLOOD GAS CARBOXY HB 0.6 %sat (0.0-9.0); ARTERIAL BLOOD GAS HCO3 25.3 mmol/L; ARTERIAL BLOOD GAS MET HB 0.7 %sat (0.0-2.0); ARTERIAL BLOOD GAS PCO2 38.4 mmHg (35.0-45.0); ARTERIAL BLOOD GAS pH 7.428 (7.350-7.450)
[2017-02-24 04:10] LABS: ARTERIAL BLOOD GAS ART SITE LEFT BRACHIAL; ARTERIAL BLOOD GAS DELIVERY VENT; ARTERIAL BLOOD GAS VENT MODE AC; ARTERIAL DRAW? YES
[2017-02-24 05:15] LABS: BASOPHIL# 0.1 X10e3 (0-0.3); BASOPHIL% 1.1 % (0-2.5); EOSINOPHIL# 0.1 X10e3 (0-0.7); EOSINOPHIL% 1.3 % (0.0-7.0); HEMATOCRIT 26.1 % (35.0-45.0); HEMOGLOBIN 8.4 gm/dL (12.0-16.0); LYMPHOCYTE# 1.7 X10e3 (1.0-3.5); LYMPHOCYTE% 18.8 % (17.0-45.0); MEAN CORPUSCULAR HEMOGLOBIN 30.1 PG (28-34); MEAN CORPUSCULAR HGB CONC 32.3 g/dL (30-36); MEAN PLATELET VOLUME 9.1 FL (6.5-11.5); MONOCYTE# 0.6 X10e3 (0-1.0); MONOCYTE% 6.3 % (3.0-12.0); NEUTROPHIL# 6.7 X10e3 (1.5-7.1); NEUTROPHIL% 72.5 % (40-75); RED BLOOD COUNT 2.81 X10e (3.90-5.30); RED CELL DISTRIBUTION WIDTH 15.8 % (11.0-15.5); WHITE BLOOD COUNT 9.2 X10e3 (4.0-10.5)
[2017-02-24 05:16] LABS: DIFF IND NO; PLATELET COUNT 254 X10e3 (140-420)
[2017-02-24 05:33] LABS: ALBUMIN SERUM 2.6 g/dL (3.5-5.0); BILIRUBIN,TOTAL 0.5 mg/dL (0.2-2.0); CALCIUM SERUM 7.8 mg/dL (8.4-10.2); CREATININE SERUM 1.6 mg/dL (0.6-1.4); GLOM FILT RATE Estimated 32.3 mL/min (>60); POTASSIUM 3.9 mmol/L (3.5-5.1); PROTEIN TOTAL SERUM 5.6 g/dL (6.0-8.3)
[2017-02-25 04:04] LABS: BASOPHIL% 0.7 % (0-2.5); EOSINOPHIL# 0.1 X10e3 (0-0.7); EOSINOPHIL% 1.9 % (0.0-7.0); HEMATOCRIT 24.6 % (35.0-45.0); HEMOGLOBIN 7.9 gm/dL (12.0-16.0); LYMPHOCYTE% 27.1 % (17.0-45.0); MEAN CELL VOLUME 93.6 FL (83-96); MEAN CORPUSCULAR HEMOGLOBIN 30.1 PG (28-34); MEAN CORPUSCULAR HGB CONC 32.2 g/dL (30-36); MEAN PLATELET VOLUME 8.5 FL (6.5-11.5); MONOCYTE# 0.5 X10e3 (0-1.0); MONOCYTE% 7.6 % (3.0-12.0); NEUTROPHIL# 4.5 X10e3 (1.5-7.1); NEUTROPHIL% 62.7 % (40-75); PLATELET COUNT 268 X10e3 (140-420); RED BLOOD COUNT 2.63 X10e (3.90-5.30); RED CELL DISTRIBUTION WIDTH 15.4 % (11.0-15.5); WHITE BLOOD COUNT 7.2 X10e3 (4.0-10.5)
[2017-02-25 04:05] LABS: ARTERIAL BLD GAS O2 SATURATION 98.3 % (90.0-100.0); ARTERIAL BLOOD GAS CARBOXY HB 0.8 %sat (0.0-9.0); ARTERIAL BLOOD GAS HCO3 24.1 mmol/L; ARTERIAL BLOOD GAS MET HB 0.7 %sat (0.0-2.0); ARTERIAL BLOOD GAS PCO2 35.3 mmHg (35.0-45.0); ARTERIAL BLOOD GAS pH 7.444 (7.350-7.450)
[2017-02-25 04:09] LABS: ARTERIAL DRAW? YES
[2017-02-25 04:10] LABS: ARTERIAL BLOOD GAS ART SITE RIGHT BRACHIAL; ARTERIAL BLOOD GAS DELIVERY VENT; ARTERIAL BLOOD GAS VENT MODE AC
[2017-02-25 04:11] LABS: DIFF IND YES
[2017-02-25 04:25] LABS: ALBUMIN SERUM 2.6 g/dL (3.5-5.0); BILIRUBIN,TOTAL 0.4 mg/dL (0.2-2.0); CALCIUM SERUM 7.9 mg/dL (8.4-10.2); CREATININE SERUM 1.3 mg/dL (0.6-1.4); GLOM FILT RATE Estimated 41.5 mL/min (>60); MAGNESIUM 2.2 mg/dL (1.6-3.0); PROTEIN TOTAL SERUM 5.9 g/dL (6.0-8.3)
[2017-02-25 04:27] LABS: POTASSIUM 2.9 mmol/L (3.5-5.1)
[2017-02-25 04:28] LABS: ANISOCYTOSIS SL; PLATELET ESTIMATE NORMAL (NORMAL)
[2017-02-25 04:29] LABS: HYPOCHROMIA MOD
[2017-02-26 04:36] LABS: ARTERIAL BLD GAS O2 SATURATION 98.2 % (90.0-100.0); ARTERIAL BLOOD GAS CARBOXY HB 0.6 %sat (0.0-9.0); ARTERIAL BLOOD GAS HCO3 21.5 mmol/L; ARTERIAL BLOOD GAS MET HB 0.9 %sat (0.0-2.0); ARTERIAL BLOOD GAS pH 7.373 (7.350-7.450)
[2017-02-26 04:40] LABS: ARTERIAL BLOOD GAS ART SITE LEFT BRACHIAL; ARTERIAL BLOOD GAS DELIVERY VENT; ARTERIAL DRAW? YES
[2017-02-26 04:41] LABS: ARTERIAL BLOOD GAS VENT MODE AC
[2017-02-26 04:57] LABS: BASOPHIL# 0.1 X10e3 (0-0.3); BASOPHIL% 1.1 % (0-2.5); EOSINOPHIL# 0.2 X10e3 (0-0.7); EOSINOPHIL% 3.2 % (0.0-7.0); HEMOGLOBIN 7.6 gm/dL (12.0-16.0); LYMPHOCYTE# 1.7 X10e3 (1.0-3.5); LYMPHOCYTE% 25.7 % (17.0-45.0); MEAN CELL VOLUME 95.1 FL (83-96); MEAN CORPUSCULAR HEMOGLOBIN 30.2 PG (28-34); MEAN CORPUSCULAR HGB CONC 31.7 g/dL (30-36); MEAN PLATELET VOLUME 8.5 FL (6.5-11.5); MONOCYTE# 0.5 X10e3 (0-1.0); MONOCYTE% 8.1 % (3.0-12.0); NEUTROPHIL# 4.1 X10e3 (1.5-7.1); NEUTROPHIL% 61.9 % (40-75); PLATELET COUNT 255 X10e3 (140-420); RED BLOOD COUNT 2.52 X10e (3.90-5.30); RED CELL DISTRIBUTION WIDTH 15.6 % (11.0-15.5); WHITE BLOOD COUNT 6.6 X10e3 (4.0-10.5)
[2017-02-26 04:58] LABS: DIFF IND NO
[2017-02-26 05:41] LABS: CALCIUM SERUM 8.3 mg/dL (8.4-10.2); CREATININE SERUM 1.3 mg/dL (0.6-1.4); GLOM FILT RATE Estimated 41.5 mL/min (>60); MAGNESIUM 2.2 mg/dL (1.6-3.0); POTASSIUM 4.3 mmol/L (3.5-5.1)
[2017-02-27 05:45] LABS: BASOPHIL% 0.6 % (0-2.5); EOSINOPHIL# 0.2 X10e3 (0-0.7); EOSINOPHIL% 2.6 % (0.0-7.0); HEMATOCRIT 25.8 % (35.0-45.0); HEMOGLOBIN 8.4 gm/dL (12.0-16.0); LYMPHOCYTE# 1.8 X10e3 (1.0-3.5); LYMPHOCYTE% 26.3 % (17.0-45.0); MEAN CORPUSCULAR HEMOGLOBIN 29.8 PG (28-34); MEAN CORPUSCULAR HGB CONC 32.5 g/dL (30-36); MEAN PLATELET VOLUME 8.7 FL (6.5-11.5); MONOCYTE# 0.6 X10e3 (0-1.0); MONOCYTE% 8.4 % (3.0-12.0); NEUTROPHIL# 4.3 X10e3 (1.5-7.1); NEUTROPHIL% 62.1 % (40-75); PLATELET COUNT 282 X10e3 (140-420); RED BLOOD COUNT 2.82 X10e (3.90-5.30); RED CELL DISTRIBUTION WIDTH 15.7 % (11.0-15.5)
[2017-02-27 05:46] LABS: DIFF IND NO; MEAN CELL VOLUME 91.7 FL (83-96)
[2017-02-27 06:51] LABS: BUN/CREATININE RATIO 34.54; CALCIUM SERUM 8.4 mg/dL (8.4-10.2); CREATININE SERUM 1.1 mg/dL (0.6-1.4); GLOM FILT RATE Estimated 50.8 mL/min (>60); MAGNESIUM 2.2 mg/dL (1.6-3.0); POTASSIUM 3.6 mmol/L (3.5-5.1)
[2017-02-28 03:52] LABS: ARTERIAL BLD GAS O2 SATURATION 98.5 % (90.0-100.0); ARTERIAL BLOOD GAS CARBOXY HB 0.5 %sat (0.0-9.0); ARTERIAL BLOOD GAS HCO3 22.2 mmol/L; ARTERIAL BLOOD GAS MET HB 0.7 %sat (0.0-2.0); ARTERIAL BLOOD GAS PCO2 34.4 mmHg (35.0-45.0); ARTERIAL BLOOD GAS pH 7.418 (7.350-7.450)
[2017-02-28 03:53] LABS: ARTERIAL BLOOD GAS ALLEN TEST NORMAL; ARTERIAL BLOOD GAS ART SITE RIGHT RADIAL; ARTERIAL BLOOD GAS DELIVERY VENT; ARTERIAL BLOOD GAS VENT MODE AC; ARTERIAL DRAW? YES
[2017-02-28 05:54] LABS: BASOPHIL# 0.1 X10e3 (0-0.3); BASOPHIL% 0.9 % (0-2.5); EOSINOPHIL# 0.1 X10e3 (0-0.7); EOSINOPHIL% 1.7 % (0.0-7.0); HEMATOCRIT 28.3 % (35.0-45.0); HEMOGLOBIN 9.1 gm/dL (12.0-16.0); LYMPHOCYTE# 2.1 X10e3 (1.0-3.5); LYMPHOCYTE% 24.7 % (17.0-45.0); MEAN CELL VOLUME 92.7 FL (83-96); MEAN CORPUSCULAR HEMOGLOBIN 29.6 PG (28-34); MEAN CORPUSCULAR HGB CONC 31.9 g/dL (30-36); MEAN PLATELET VOLUME 9.2 FL (6.5-11.5); MONOCYTE# 0.7 X10e3 (0-1.0); MONOCYTE% 7.8 % (3.0-12.0); NEUTROPHIL# 5.5 X10e3 (1.5-7.1); NEUTROPHIL% 64.9 % (40-75); PLATELET COUNT 298 X10e3 (140-420); RED BLOOD COUNT 3.06 X10e (3.90-5.30); RED CELL DISTRIBUTION WIDTH 15.7 % (11.0-15.5); WHITE BLOOD COUNT 8.5 X10e3 (4.0-10.5)
[2017-02-28 06:04] LABS: DIFF IND YES
[2017-02-28 06:31] LABS: BUN/CREATININE RATIO 27.5; CALCIUM SERUM 8.7 mg/dL (8.4-10.2); CREATININE SERUM 1.2 mg/dL (0.6-1.4); GLOM FILT RATE Estimated 45.8 mL/min (>60); MAGNESIUM 2.1 mg/dL (1.6-3.0); POTASSIUM 3.6 mmol/L (3.5-5.1)
[2017-02-28 07:11] LABS: PLATELET ESTIMATE NORMAL (NORMAL)
[2017-03-01 05:31] LABS: BUN/CREATININE RATIO 34.54; CALCIUM SERUM 8.4 mg/dL (8.4-10.2); CREATININE SERUM 1.1 mg/dL (0.6-1.4); GLOM FILT RATE Estimated 50.8 mL/min (>60); MAGNESIUM 2.2 mg/dL (1.6-3.0); POTASSIUM 3.6 mmol/L (3.5-5.1)
== END 2017-03-01 18:30 | DRG 4 ==
LOC: CED 11:18 → CEDOF 15:26 → CICCU3 15:26 → CED 15:26 → CICCU3 15:50 → CEDOF 15:50 → CICCU3 16:39
PROVIDERS: Emergency Medicine; Hospitalist; Internal Medicine; Internal Medicine Cardiovascular Disease; Internal Medicine Hematology; Internal Medicine Hematology & Oncology; Internal Medicine Nephrology; Internal Medicine Pulmonary Disease; Nurse Practitioner; Physician Assistant Medical; Surgery; Thoracic Surgery (Cardiothoracic Vascular Surgery)
PROC: 5A1955Z Respiratory Ventilation, Greater than 96 Consecutive Hours (ICD-10-PCS; 2017-02-07)
PROC: 05HM33Z Insertion of Infusion Device into Right Internal Jugular Vein, Percutaneous Approach (ICD-10-PCS; 2017-02-07)
PROC: B543ZZA Ultrasonography of Right Jugular Veins, Guidance (ICD-10-PCS; 2017-02-07)
PROC: 0BH17EZ Insertion of Endotracheal Airway into Trachea, Via Natural or Artificial Opening (ICD-10-PCS; 2017-02-07)
PROC: 0DH67UZ Insertion of Feeding Device into Stomach, Via Natural or Artificial Opening (ICD-10-PCS; 2017-02-08)
PROC: B246YZZ Ultrasonography of Right and Left Heart using Other Contrast (ICD-10-PCS; 2017-02-08)
PROC: 30233N1 Transfusion of Nonautologous Red Blood Cells into Peripheral Vein, Percutaneous Approach (ICD-10-PCS; 2017-02-17)
PROC: 0DH63UZ Insertion of Feeding Device into Stomach, Percutaneous Approach (ICD-10-PCS; 2017-02-23)
PROC: 0B110F4 Bypass Trachea to Cutaneous with Tracheostomy Device, Open Approach (ICD-10-PCS; principal; 2017-02-23 11:00)
DX: A41.9 Sepsis, unspecified organism (principal); R65.21 Severe sepsis with septic shock; J69.0 Pneumonitis due to inhalation of food and vomit; I21.4 Non-ST elevation (NSTEMI) myocardial infarction; G92 Toxic encephalopathy; J96.21 Acute and chronic respiratory failure with hypoxia; N17.9 Acute kidney failure, unspecified; E87.0 Hyperosmolality and hypernatremia; E87.2 Acidosis; D69.6 Thrombocytopenia, unspecified; N39.0 Urinary tract infection, site not specified; M62.82 Rhabdomyolysis; Z99.11 Dependence on respirator [ventilator] status; I42.9 Cardiomyopathy, unspecified; F33.2 Major depressive disorder, recurrent severe without psychotic features; F41.9 Anxiety disorder, unspecified; I12.9 Hypertensive chronic kidney disease with stage 1 through stage 4 chronic kidney disease, or unspecified chronic kidney disease; N18.3 Chronic kidney disease, stage 3 (moderate); Z88.1 Allergy status to other antibiotic agents; Z88.0 Allergy status to penicillin; Z88.2 Allergy status to sulfonamides; Z90.49 Acquired absence of other specified parts of digestive tract; Z98.51 Tubal ligation status; E03.9 Hypothyroidism, unspecified; E11.9 Type 2 diabetes mellitus without complications; I10 Essential (primary) hypertension; Z96.641 Presence of right artificial hip joint; Z96.651 Presence of right artificial knee joint; Z86.711 Personal history of pulmonary embolism; G47.33 Obstructive sleep apnea (adult) (pediatric); J44.9 Chronic obstructive pulmonary disease, unspecified; B96.20 Unspecified Escherichia coli [E. coli] as the cause of diseases classified elsewhere; G89.29 Other chronic pain; E87.5 Hyperkalemia; E87.6 Hypokalemia
CPT/HCPCS: 36415; 36600; 70450; 71010; 71250; 74000; 80048; 80053; 80061; 80076; 80200; 80202; 80307; 81003; 82140; 82150; 82274; 82550; 82553; 82607; 82728; 82803; 82947; 83540; 83550; 83605; 83690; 83735; 83880; 84100; 84132; 84443; 84484; 85014; 85018; 85025; 85027; 85610; 85730; 86850; 86900; 86901; 86923; 87040; 87070; 87077; 87086; 87088; 87186; 87205; 87493; 93005; 93306; 93970; 94002; 94003; 94640; 94660; 94760; 94761; 96360; 96361; 97110; 97163; 97167; 97530; 97535; 99285; C9113; G8978-GP; G8979-GP; G8987-GO; G8988-GO; J0610; J1650; J1720; J1940; J1956; J2060; J2250; J2370; J2405; J2916; J3010; J3260; J3370; J3475; J3480; J7060; P9016; Q4081